=== PATIENT | male | born 1950 | race Caucasian/White ===

== ENCOUNTER 2019-07-27 05:47 | Outpatient (CLI) | payer MEDICARE, OTHER ==
[~2019-07-27] VITALS: Ht 177.8 cm; Wt 105.8 kg
[2019-07-27] MEDS ORDERED: PANT40TA3 PO (12:12)
== END 2019-07-27 12:13 | disposition home or self-care (01) ==
LOC: PREOP 05:47
PROVIDERS: ATTEND Surgery
DX: Z01.818 Encounter for other preprocedural examination (principal)

== ENCOUNTER 2019-08-03 08:40 | Day surgery (SDC) | payer MEDICARE, OTHER ==
[~2019-08-03] VITALS: Ht 177.8 cm; Wt 105.8 kg
[~2019-08-03 08:40] MED LIST: PANT40TA3 PO
[2019-08-03] MEDS ORDERED: LACTATED RINGERS 1,000 ML IV STA (08:42)
[2019-08-03] MEDS ORDERED: LIDOCAINE JELLY 2% 6 ML SYRINGE MM PRN (08:45)
[2019-08-03] MEDS ORDERED: HURRICAINE EXT TUBE (BENZOCAINE) XX PRN (08:45)
[2019-08-03] MEDS ORDERED: LACTATED RINGERS 1,000 ML IV ONE (08:46)
[2019-08-03 09:00] VITALS: BP 164/91
--- NOTE | 2019-08-03 09:45 | Progress Note-Pre Operative ---
Pre-Operative Progress Note H&P Reviewed The H&P was reviewed, patient examined and no changes noted. Time Seen by Provider: 09:44 Date H&P Reviewed: Aug 03, 2019 Time H&P Reviewed: 09:43 Pre-Operative Diagnosis: chronic gastritis, screening colon BLAKE GRANADOS DO Aug 03, 2019 09:45
[2019-08-03] MEDS ORDERED: PROPOFOL INJECTION 50 ML IV ONE ×2 (10:14→10:32)
[2019-08-03] MEDS ORDERED: MIDAZOLAM 2 MG/2 ML (VERSED) VIAL ONE (10:14)
[2019-08-03 10:50] VITALS: BP 143/85
[2019-08-03 10:55] VITALS: BP 156/91
[2019-08-03 11:00] VITALS: BP 156/97
[2019-08-03 11:30] VITALS: BP 142/92
--- NOTE | 2019-08-03 11:54 | Endoscopy Discharge Instruct ---
Endo Procedure/Findings Findings 1.: Gastritis, Other Findings (Duodenitis, Esophagitis) 2.: Polyp 3.: Diverticulosis 4.: Internal Hemorrhoids Discharge Instructions - Activity: You might feel a little sleepy until tomorrow. This is due to the medicine you received to relax you. Until tomorrow, you should: NOT drive a car, operate machinery or power tools. NOT drink any alcoholic beverages. NOT make any important decisions or sign importortant papers. Do not return to work until tomorrow, unless otherwise instructed. Resume previous activities tomorrow. Diet: Start by taking liquids. If you tolerate liquids, advance to solid food. make an appointment for one week 1.: Colonoscopy in 1 year Notify Physician - If you experience excessive bleeding, unusual abdominal pain, fever, or chest pain, contact your doctor immediately. BLAKE GRANADOS DO Aug 03, 2019 11:54
[2019-08-03 12:10] VITALS: BP 142/92
--- NOTE | 2019-08-03 12:51 | Anesthesia-General Post-Op ---
MAC Patient Condition Mental Status/LOC: Same as Preop Cardiovascular: Satisfactory Nausea/Vomiting: Absent Respiratory: Satisfactory Pain: Controlled Complications: Absent Post Op Complications Complications None Follow Up Care/Instructions Patient Instructions None needed. Anesthesiology Discharge Order Discharge Order Patient is doing well, no complaints, stable vital signs, no apparent adverse anesthesia problems. No complications reported per nursing. DANNY CUEVAS CRNA Aug 03, 2019 12:51
--- NOTE | 2019-08-05 00:16 | OPERATIVE REPORT ---
DATE OF SERVICE: 08/03/2019 PREOPERATIVE DIAGNOSES: 1. Chronic gastritis. 2. Screening colonoscopy. POSTOPERATIVE DIAGNOSES: 1. Duodenitis. 2. Gastritis. 3. Esophagitis. 4. Colon polyps. 5. Diverticula. 6. Internal hemorrhoids. PROCEDURE: 1. EGD with biopsy. 2. Colonoscopy with snare polypectomy. SURGEON: Fernando Diaz D.O. COMMUNITY AIDE: None. ANESTHESIA: IV sedation by the REPAIR SERVICE DISPATCHER. SPECIMEN: Biopsy from the antrum, body of stomach and GE junction as well as two polyps from the ascending colon and one polyp from the sigmoid colon. BLOOD LOSS: Scant. FLUIDS: Per anesthesia. POSTOPERATIVE CONDITION: Stable. INDICATION FOR PROCEDURE: The patient is a 69-year-old male who has some chronic reflux and GERD symptoms. He also need for screening colonoscopy. FINDINGS: The patient had inflammation in the duodenum as well as in the stomach and at the GE junction. In the colon, he had a polyp seen, two in the ascending colon and one in the sigmoid colon. He also had diverticula throughout the colon and internal hemorrhoids. PROCEDURE NOTE: After informed consent was obtained, the patient was brought to the endoscopy suite and placed in the bed in left lateral decubitus position. He was administered IV sedation by the REPAIR SERVICE DISPATCHER who then monitored his vitals the entire time, heart rate, blood pressure and pulse ox and the scope was inserted down the mouth through the esophagus into the stomach, noted some redness in the stomach, pushed through here into the duodenum, duodenum actually looked very red, like a duodenitis. Pictures were taken and a biopsy was done, pulled back into the antrum. Again saw some inflammation, did a biopsy here, then pulled back into the body of stomach, again inflamed looking tissue, did a biopsy here. Retroflexed the scope and then pulled the scope into the GE junction, did a biopsy here then pulled the scope up the esophagus and out the mouth. Switched camera, switched gloves, went down below, started the colonoscopy, pushed the scope in, on the way in and the ascending colon, saw some polyps, did a snare polypectomy of these. There is two in the ascending colon, unable to get all the way to the cecum, took a picture of the appendiceal orifice, noted the ileocecal valve and then slowly withdrew the scope, insufflating to look circumferentially at wall, looking at cecum up the ascending colon to the hepatic flexure, then down the transverse colon to splenic flexure, into the descending colon and sigmoid. Throughout here saw diverticula, took a picture of this and then pulled the scope down into the sigmoid and the sigmoid again saw flat polyp, did another snare polypectomy and then down into the rectum, retroflexed the rectal vault, saw some grade I may be grade II internal hemorrhoids, took a picture of this and then removed the scope. The patient tolerated the procedure and was recovered in endoscopy suite. Job ID: [id number] DocumentID: [id number] Dictated Date: 08/04/2019 17:15:15 Plate Cleaner Date: 08/05/2019 00:15:36 Dictated By: FERNANDO DIAZ DO
== END 2019-08-03 12:10 | disposition home or self-care (01) ==
LOC: ENDO 08:40
PROVIDERS: ATTEND Surgery
DX: Z12.11 Encounter for screening for malignant neoplasm of colon (principal); D12.2 Benign neoplasm of ascending colon; K63.5 Polyp of colon; K21.0 Gastro-esophageal reflux disease with esophagitis; K29.50 Unspecified chronic gastritis without bleeding; K29.80 Duodenitis without bleeding; K57.30 Diverticulosis of large intestine without perforation or abscess without bleeding; K31.89 Other diseases of stomach and duodenum; K64.8 Other hemorrhoids; I10 Essential (primary) hypertension; E66.9 Obesity, unspecified; Z68.33 Body mass index [BMI] 33.0-33.9, adult; Z79.899 Other long term (current) drug therapy; Z82.0 Family history of epilepsy and other diseases of the nervous system
CPT/HCPCS: 88305

== ENCOUNTER 2021-04-30 18:00 | Inpatient (IN) | payer MEDICARE, OTHER ==
[~2021-04-30] VITALS: Ht 177.8 cm; Wt 104.9 kg
[~2021-04-30 18:00] MED LIST changes: -PANT40TA3 PO; +PANT40TA52 PO
--- NOTE | 2021-04-30 18:03 | ED Chest Pain ---
General Stated Complaint: CHEST PAIN History of Present Illness Date Seen by Provider: Apr 30, 2021 Time Seen by Provider: 18:03 Initial Comments 71-year-old male presents with chest pain, diaphoresis and just not feeling well. Started approximately 1 hour ago he was out haying riding in an airconditioned tractor. He has some mild shortness of breath. The chest pain is substernal. Allergies and Home Medications Allergies Coded Allergies: No Known Drug Allergies (Unverified , 07/27/19) Home Medications Lisinopril 10 Mg Tablet, 10 MG PO DAILY, (Reported) Last Action: New Order Pantoprazole Sodium 40 Mg Tablet.dr, 40 MG PO DAILY, (Reported) Last Action: Last Taken Edited Patient Home Medication List Home Medication List Reviewed: Yes Review of Systems Review of Systems Constitutional: No chills, No fever Respiratory: Denies Cough; Shortness of Air Cardiovascular: Chest Pain Musculoskeletal: no symptoms reported Skin: other (Diaphoresis) Psychiatric/Neurological: No Symptoms Reported Endocrine: No Symptoms Reported Hematologic/Lymphatic: No Symptoms Reported Past Nmcpjhn-Wixqub-Kbehch Hx Seasonal Allergies Seasonal Allergies: Yes Past Medical History Surgeries: Yes (LESION REMOVED FROM ARM) Respiratory: No Cardiac: No Neurological: No Genitourinary: No Gastrointestinal: Yes Gastroesophageal Reflux Musculoskeletal: No Endocrine: No HEENT: No Cancer: Yes Melanoma What Type of Treatment Did You: Surgical Intervention Psychosocial: No Integumentary: No Blood Disorders: No Physical Exam Vital Signs Vital Signs - First Documented 04/30/21 04/30/21 18:00 18:05 Temp 35.4 Pulse 70 Resp 22 B/P (MAP) 114/75 (88) Pulse Ox 98 O2 Delivery Room Air O2 Flow Rate 2.00 FiO2 98 Capillary Refill : Height, Weight, BMI Height: '" Weight: lbs. oz. kg; 33.46 BMI Method: General Appearance: Other (Diaphoretic, moderate distress) HEENT: PERRL/EOMI Neck: Non Tender, Supple Respiratory: Lungs Clear Cardiovascular: Regular Rate, Rhythm, No Edema Neurologic/Psychiatric: Alert, Oriented x3, Normal Mood/Affect Skin: Diaphoresis Progress/Results/Core Measures Results/Orders Lab Results Laboratory Tests Test 04/30/21 17:04 Range/Units White Blood Count 11.3 H 4.3-11.0 10^3/uL Red Blood Count 5.25 4.35-5.85 10^6/uL Hemoglobin 16.2 13.3-17.7 G/DL Hematocrit 50 40-54 % Mean Corpuscular Volume 95 80-99 FL Mean Corpuscular Hemoglobin 31 25-34 PG Mean Corpuscular Hemoglobin Concent 32 32-36 G/DL Red Cell Distribution Width 14.2 10.0-14.5 % Platelet Count 288 130-400 10^3/uL Mean Platelet Volume 9.9 7.4-10.4 FL Neutrophils (%) (Auto) 71 42-75 % Lymphocytes (%) (Auto) 19 12-44 % Monocytes (%) (Auto) 8 0-12 % Eosinophils (%) (Auto) 1 0-10 % Basophils (%) (Auto) 0 0-10 % Neutrophils # (Auto) 8.0 H 1.8-7.8 X 10^3 Lymphocytes # (Auto) 2.1 1.0-4.0 X 10^3 Monocytes # (Auto) 0.9 0.0-1.0 X 10^3 Eosinophils # (Auto) 0.2 0.0-0.3 10^3/uL Basophils # (Auto) 0.0 0.0-0.1 10^3/uL Prothrombin Time 12.5 12.2-14.7 SEC INR Comment 0.9 0.8-1.4 Activated Partial Thromboplast Time 26 24-35 SEC Sodium Level 139 135-145 MMOL/L Potassium Level 5.0 3.6-5.0 MMOL/L Chloride Level 103 98-107 MMOL/L Carbon Dioxide Level 28 21-32 MMOL/L Anion Gap 8 5-14 MMOL/L Blood Urea Nitrogen 19 H 7-18 MG/DL Creatinine 1.77 H 0.60-1.30 MG/DL Estimat Glomerular Filtration Rate 38 BUN/Creatinine Ratio 11 Glucose Level 144 H 70-105 MG/DL Calcium Level 9.5 8.5-10.1 MG/DL Corrected Calcium 9.1 8.5-10.1 MG/DL Magnesium Level 2.3 1.6-2.4 MG/DL Total Bilirubin 0.2 0.1-1.0 MG/DL Aspartate Amino Transf (AST/SGOT) 15 5-34 U/L Alanine Aminotransferase (ALT/SGPT) 21 0-55 U/L Alkaline Phosphatase 56 40-136 U/L Myoglobin 47.9 10.0-92.0 NG/ML Troponin I < 0.30 <0.30 NG/ML Total Protein 7.2 6.4-8.2 GM/DL Albumin 4.5 3.2-4.5 GM/DL My Orders Orders - BYRD,ROBERT L DO Cbc With Automated Diff (04/30/21 18:03) Magnesium (04/30/21 18:03) Chest 1 View Ap/Pa Only (04/30/21 18:03) Ekg Tracing (04/30/21 18:03) Comprehensive Metabolic Panel (04/30/21 18:03) Myoglobin Serum (04/30/21 18:03) Protime With Inr (04/30/21 18:03) Partial Thromboplastin Time (04/30/21 18:03) O2 (04/30/21 18:03) Monitor-Rhythm Ecg Trace Only (04/30/21 18:03) Lipid Panel (05/01/21 06:00) Aspirin Chewable Tablet (Baby Aspirin Ch (04/30/21 18:15) Ed Iv/Invasive Line Start (04/30/21 18:03) Troponin I Fs (04/30/21 18:03) Clopidogrel Tablet (Plavix Tablet) (04/30/21 18:15) Heparin (Bolus Per Protocol) (Heparin (B (04/30/21 18:15) Clopidogrel Tablet (Plavix Tablet) (04/30/21 18:12) Ondansetron Injection (Zofran Injectio (04/30/21 18:30) Ondansetron Injection (Zofran Injectio (04/30/21 18:18) Medications Given in ED Current Medications Medications Dose Ordered Sig/Brooks Route Start Time Stop Time Status Last Admin Dose Admin Aspirin 324 mg ONCE ONCE PO 04/30/21 18:15 04/30/21 18:16 DC 04/30/21 18:15 324 MG Clopidogrel Bisulfate 600 mg ONCE ONCE PO 04/30/21 18:15 04/30/21 18:16 DC 04/30/21 18:15 600 MG Ondansetron HCl 4 mg ONCE ONCE IVP 04/30/21 18:30 04/30/21 18:31 DC 04/30/21 18:19 4 MG Vital Signs/I&O 04/30/21 04/30/21 04/30/21 18:00 18:05 18:20 Temp 35.4 35.4 Pulse 70 68 Resp 22 22 B/P (MAP) 114/75 (88) 111/71 (88) Pulse Ox 98 98 O2 Delivery Room Air Room Air Nasal Cannula O2 Flow Rate 2.00 2.00 FiO2 98 Progress Progress Note : Progress Note Patient with an acute ST elevation ND. Patient transferred emergently via EMS to [facility] straight to the Clinical Geneticist. Discussed with Dr. Christian. Initial ECG Impression Date: Apr 30, 2021 Initial ECG Impression Time: 18:02 Initial ECG Rate: 69 Comment Acute Stemi, St elevation V1, V2 with reciprical st depression II, III, AVF Departure Communication (Admissions) Time/Spoke to Admitting Phy: 18:11 Aspirin, heparin, Plavix, transferred to [facility] directly to the Clinical Geneticist Impression Primary Impression: STEMI (ST elevation myocardial infarction) Qualified Codes: I21.3 - ST elevation (STEMI) myocardial infarction of uns pecified site Disposition: HOME, SELF-CARE Condition: Critical Admissions Decision to Admit Reason: Admit from ER (General) Decision to Admit/Date: Apr 30, 2021 Time/Decision to Admit Time: 18:11 Transfer Method of Transfer: EMS Departure-Patient Inst. Referrals: JAYA DIEHL MD (PCP/Family) Primary Care Physician ROBERT BYRD DO Apr 30, 2021 18:03
[2021-04-30 18:09] LABS: BASOPHILS % (AUTO) 0 % (0-10); EOSINOPHILS % (AUTO) 1 % (0-10); HEMATOCRIT 50 % (40-54); HEMOGLOBIN 16.2 G/DL (13.3-17.7); LYMPHOCYTES % (AUTO) 19 % (12-44); MEAN CORPUSCULAR HEMOGLOBIN 31 PG (25-34); MEAN CORPUSCULAR HGB CONC 32 G/DL (32-36); MEAN CORPUSCULAR VOLUME 95 FL (80-99); MEAN PLATELET VOLUME 9.9 FL (7.4-10.4); MONOCYTES % (AUTO) 8 % (0-12); NEUTROPHILS % (AUTO) 71 % (42-75); PLATELET COUNT 288 10^3/uL (130-400); WHITE BLOOD COUNT 11.3 10^3/uL (4.3-11.0)
[2021-04-30 18:10] LABS: EOSINOPHILS # (AUTO) 0.2 10^3/uL (0.0-0.3); LYMPHOCYTES # (AUTO) 2.1 X 10^3 (1.0-4.0); MONOCYTES # (AUTO) 0.9 X 10^3 (0.0-1.0)
[2021-04-30] MEDS ORDERED: CLOPIDOGREL 300 MG (PLAVIX) TABLET PO ONE ×2 (18:12→18:15)
[2021-04-30] MEDS ORDERED: HEParin 1000 UNIT/ML (10ML VIAL) FOR BOLUS IV SCH (18:15)
[2021-04-30] MEDS ORDERED: ASPIRIN 81 MG CHEW (CHILDREN'S ASA) PO ONE (18:15)
[2021-04-30] MEDS ORDERED: ONDANSETRON 4 MG/2 ML (SDV) Z0FRAN ONE (18:18)
[2021-04-30 18:24] LABS: CREATININE SERUM 1.77 MG/DL (0.60-1.30)
[2021-04-30 18:25] LABS: ALBUMIN 4.5 GM/DL (3.2-4.5); BILIRUBIN,TOTAL 0.2 MG/DL (0.1-1.0); CALCIUM 9.5 MG/DL (8.5-10.1); MAGNESIUM 2.3 MG/DL (1.6-2.4); TOTAL PROTEIN 7.2 GM/DL (6.4-8.2)
--- NOTE | 2021-04-30 18:27 | Diagnostic Imaging Report ---
EXAMINATION: Chest 1 view. HISTORY: Chest pain. COMPARISON: None available. FINDINGS: The lung volumes are normal. No focal consolidation is seen. No large pleural effusion or pneumothorax is seen. The cardiomediastinal silhouette is normal in size and contour. No acute osseous abnormality is seen. IMPRESSION: No acute pleuroparenchymal process. Dictated by: Dictated on workstation # [id number]
[2021-04-30] MEDS ORDERED: ONDANSETRON 4 MG/2 ML (SDV) Z0FRAN IVP ONE (18:30)
[2021-04-30] MEDS ORDERED: LISI10TA25 PO (18:38)
[2021-04-30] MEDS ORDERED: fentaNYL INJ 100 MCG/2 ML AMP ONE (18:50)
[2021-04-30] MEDS ORDERED: MIDAZOLAM 5 MG/5 ML (VERSED) VIAL ONE (18:50)
[2021-04-30] MEDS ORDERED: LIDOCAINE 1% INJ 20 ML 20 ML VIAL ONE (18:51)
[2021-04-30] MEDS ORDERED: NS IV 1000 ML 1,000 ML ONE (18:51)
[2021-04-30] MEDS ORDERED: HEParin (CATH LAB) 2,000 ML IV ONE (18:51)
[2021-04-30] MEDS ORDERED: HEParin 1000 UNIT/ML (10ML VIAL) FOR BOLUS ONE (18:51)
[2021-04-30] MEDS ORDERED: NITRO DRIP 25000 MCG/D5W 250 ML IV ONE (18:52)
[2021-04-30 19:15] LABS: INR 0.9 (0.8-1.4); PROTHROMBIN TIME PATIENT 12.5 SEC (12.2-14.7)
[2021-04-30] MEDS ORDERED: EPTIFIBATIDE DRIP 100 ML IV ONE ×2 (19:18→23:09)
[2021-04-30] MEDS ORDERED: EPTIFIBATIDE BOLUS 20 ML IV ONE (19:18)
[2021-04-30] MEDS ORDERED: niCARdipine IV FOR DRIP 50 MG KIT ONE (19:20)
[2021-04-30] MEDS ORDERED: NS (IVPB) 250 ML ONE (19:21)
--- NOTE | 2021-04-30 19:40 | Cardiology History & Physical ---
HPI-Cardiology Cardiology Consultation Date of Consultation 04/30/21 Date of Admission Time Seen by Provider: 07:00 Indication: Chest pain HPI 71 years old gentleman with history of hypertension, diabetes mellitus, started to have chest pain and came to the emergency room where he was noted to have ST elevation myocardial infarction in the anterior wall. I was contacted and the Track Supervisor team were activated, on my evaluation patient was still having active chest pain, required multiple morphine injection. No shortness of breath. No syncope or near syncopal episodes. No previous cardiac history PMH-Cardiology Immunizations Up To Date Date of Pneumonia Vaccine: Apr 27, 2019 Seasonal Allergies Seasonal Allergies: Yes Surgeries Yes (LESION REMOVED FROM ARM) Respiratory No Cardiovascular No Neurological No Genitourinary No Gastrointestinal Yes Gastroesophageal Reflux Musculoskeletal No Endocrine No HEENT No Cancer Yes Melanoma Type of Treatment: Surgical Intervention Psychosocial No Integumentary No Blood Transfusions No Social History Patient Social History Marrital Status: Employed/Student: retired Have you traveled recently?: No Alcohol Use?: Unable to obtain Family Hx Other Noncontributory to his current condition ROS-Cardiology Review of Systems General: No Chills, No Night Sweats, No Fatigue, No Malaise, No Appetite; Other (Diaphoresis) HEENT: No Head Aches, No Visual Changes, No Eye Pain, No Ear Pain, No Dysp hasia, No Sinus Congestion, No Post Nasal Drip, No Sore Throat Pulmonary: No Dyspnea, No Cough, No Pleuritic Chest Pain Cardiovascular: Chest Pain; No: Palpitations, Orthopnea, Paroxysmal Noc. Dyspnea, Edema, Lt Headedness Gastrointestinal: No: Nausea, Vomiting, Abdominal Pain, Diarrhea, Constipation, Melena, Hematochezia Genitourinary: No Dysuria, No Frequency, No Incontinence, No Hematuria, No Retention Musculoskeletal: No: neck pain, shoulder pain, arm pain, back pain, hand pain, leg pain, foot pain Neurological: No: Weakness, Numbness, Incoordination, Change in speech, Confusion, Seizures Home Medications & Allergies Allergies: Coded Allergies: No Known Drug Allergies (Unverified , 07/27/19) Home Medication List Reviewed: Yes Exam-Cardiology Vital Signs Vital Signs Date Time Temp Pulse Resp B/P (MAP) Pulse Ox O2 Delivery O2 Flow Rate FiO2 04/30/21 18:20 35.4 68 22 111/71 (88) 98 Nasal Cannula 2.00 04/30/21 18:05 98 Exam General Appearance: Alert, Oriented X3, Cooperative, No Acute Distress HEENT: Atraumatic, PERRLA Respiratory: Clear to Auscultation, Normal Air Movement Cardiovascular: Regular Rate, Normal S1, Normal S2, No Murmurs Abdominal: Normal Bowel Sounds, Soft, No Tenderness, No Hepatosplenomegaly, No Masses Extremities: No Clubbing, No Cyanosis, No Edema, Normal Pulses, No Tenderness/Swelling Skin: No Rashes, No Breakdown, No Significant Lesion Neuro: Normal Gait, Normal Speech, Strength at 5/5 X4 Ext, Normal Tone, Sensation Intact Psych/Mental Status: Mental Status NL, Mood NL Results Labs Labs Laboratory Tests 04/30/21 17:04: White Blood Count 11.3H, Red Blood Count 5.25, Hemoglobin 16.2, Hematocrit 50, Mean Corpuscular Volume 95, Mean Corpuscular Hemoglobin 31, Mean Corpuscular Hemoglobin Concent 32, Red Cell Distribution Width 14.2, Platelet Count 288, Mean Platelet Volume 9.9, Neutrophils (%) (Auto) 71, Lymphocytes (%) (Auto) 19, Monocytes (%) (Auto) 8, Eosinophils (%) (Auto) 1, Basophils (%) (Auto) 0, Neutrophils # (Auto) 8.0H, Lymphocytes # (Auto) 2.1, Monocytes # (Auto) 0.9, Eosinophils # (Auto) 0.2, Basophils # (Auto) 0.0, Prothrombin Time 12.5, INR Comment 0.9, Activated Partial Thromboplast Time 26, Sodium Level 139, Potassium Level 5.0, Chloride Level 103, Carbon Dioxide Level 28, Anion Gap 8, Blood Urea Nitrogen 19H, Creatinine 1.77H, Estimat Glomerular Filtration Rate 38, BUN/Creatinine Ratio 11, Glucose Level 144H, Calcium Level 9.5, Corrected Calcium 9.1, Magnesium Level 2.3, Total Bilirubin 0.2, Aspartate Amino Transf (AST/SGOT) 15, Alanine Aminotransferase (ALT/SGPT) 21, Alkaline Phosphatase 56, Myoglobin 47.9, Troponin I < 0.30, Total Protein 7.2, Albumin 4.5 A/P-Cardiology Admission Diagnosis Acute ST elevation myocardial infarction Coronary artery disease Hypertension Hyperlipidemia Admission Status: Inpatient Order (span 2 midnights) Reason for Inpatient Admission: STEMI Assessment/Plan Acute ST elevation myocardial infarction in the anterior wall, patient was brought from the emergency room directly to the Track Supervisor for emergency cardiac catheterization, stenting to the LAD was done with door to balloon time 16 minutes with excellent results Coronary artery disease, cardiac catheterization carried out on April 30, 2021 showing total occlusion of the proximal LAD, status post balloon angioplasty and stenting using Anneliese 3 x 23 mm drug-eluting stent expanded to 3.12 mm with excellent results, patient has severe stenosis in the proximal right coronary artery that is small nondominant artery which will be treated at a later point to limit the exposure to contrast Congestive heart failure, acute left ventricular systolic dysfunction with anterior apical anterior wall hypokinesia, ejection fraction 40%. Will be starting on beta-blockers and ARB Hypertension, starting on beta-blockers and ARB, monitor blood pressure Hyperlipidemia we will be starting empirically on Lipitor 80 mg daily Diabetes mellitus, starting on Accu-Chek. Managed by primary care team Acute renal insufficiency, starting on IV fluid and monitoring renal function Clinical Quality Measures AMI/AHF: ASA po Prior to arrival: FIONA Singh MD Apr 30, 2021 7:40 pm
--- NOTE | 2021-04-30 19:41 | Conscious Sedation/ASA ---
Conscious Sedation Pre-Proced Time 07:00 ASA Score 3 For ASA 3 and 4: Consider anesthesia and medical clearance. Also, for patients with a history of failed moderate sedation consider anesthesia. Airway Lungs Heart ASA score ASA 1: a normal healthy patient ASA 2: a patient with a mild systemic disease (mid diabetes, controlled hypertension, obesity x ASA 3: a patient with a severe systemic disease that limits activity (angina, COPD, prior Myocardial infarction) ASA 4: a patient with an incapacitating disease that is a constant threat to life (CHF, renal failure) ASA 5: a moribund patient not expected to survive 24 hrs. (ruptured aneurysm) ASA 6: a declared brain- patient whose organs are being harvested. For emergent operations, add the letter E after the classification Mallampati Classification Grade 3 Sedation Plan Analgesia, Amnesia, Plan communicated to team members, Discussed options with patient/fam, Discussed risks with patient/fam The patient is an appropriate candidate to undergo the planned procedure, sedation, and anesthesia. The patient immediately re-assessed prior to indication. FIONA SEALS MD Apr 30, 2021 7:40 pm
[2021-04-30] MEDS ORDERED: PATIENT MAY USE OWN MEDS, ALL PO SCH (19:45)
--- NOTE | 2021-04-30 19:50 | Cardiac Cath Report ---
Cardiac Cath Report Physician (s)/Teaching Music Lessons (s) Physician FIONA SEALS MD Pre-Procedure Diagnosis Pre-Procedure Diagnosis: Acute ST elevation myocardial infarction Post-Procedure Note Procedure Start Date: Apr 30, 2021 Name of Procedure: Left heart catheterization Emergency stenting to the LAD Findings/Procedure Note PROCEDURE NOTE: 71 years old gentleman admitted with acute ST elevation myocardial infarction in the anterior wall, Rat Farmer was activated and emergency cardiac catheterization was planned. After explaining the procedure to the patient, all pros and cons were explained, all questions were answered. The patient signed the consent and then he was placed on the cardiac catheterization laboratory. Groin was prepped SL fashion local anesthesia was used. Sheath placed in the right femoral artery. Iron right was advanced to the right coronary system then I used left guide knowing that the patient has acute anterior wall ST elevation myocardial infarction to do the angiogram to the left system then intervention was done. Pigtail was used to access the left ventricular cavity. Left ventriculogram was done Patient received 5000 unit of heparin in the emergency room, ACT was 140, additional 3000 units of heparin were given and double bolus Integrilin and Integrilin drip was initiated. Iron left guide was advanced to the left coronary system, patient has total occlusion of the proximal LAD, BMW wire was advanced through the LAD without difficulties, primary ballooning with 2 x 20 balloon was done reestablishment of flow was done at door to established flow of 16 minutes, second balloon using trek 3 x 20 mm was done then stenting using Anneliese 3 x 23 mm expanded to 3.12 mm with excellent results, patient was given 200 mcg of intracoronary Cardene. Initially there was poor flow in the LAD, using the 2.0 balloon I advanced the balloon down to the distal LAD and retracted without inflation which reestablish flow. At the end of the procedure the sheath was removed. Closure device was deployed FINDINGS: Hemodynamics LV 109/24, end-diastolic pressure of 24 Aorta 107/63 mean of 83 ANATOMY: Left Main is free of obstructive disease Left Anterior Descending is totally occluded proximally, successful emergency angioplasty and stenting with deployment of Anneliese 3.0 x 23 mm expanded to 3.12 mm with excellent results, door to balloon time was 16 minutes Left Circumflex is large dominant artery with mild disease nonobstructive disease Right Coronary Artery is small nondominant artery with severe stenosis proximally LV Gram was done in the left anterior black position left ventricle is prominent, hypokinesia in the anterior wall akinesia of the apex, ejection fraction 40% CONCLUSION: 1. Acute ST elevation myocardial infarction in the anterior wall with emergency cardiac catheterization and stenting to the LAD with door to establish flow 16 minutes 2. Total occlusion of the LAD successful balloon angioplasty and stenting using Anneliese 3 x 23 mm expanded to 3.12 mm with excellent results 3. Severe stenosis in the proximal right coronary artery that is small nondominant artery which would be staged for later point 4. Large dominant circumflex artery with mild disease nonobstructive disease 5. Congestive heart failure, hypokinesia of the anterior wall, akinesia of the apex secondary to stunned myocardium, ejection fraction 40% DISCUSSION AND RECOMMENDATION: Patient has underlying renal insufficiency, has elevated left ventricular end-diastolic pressure, he was loaded with aspirin and Plavix, started on Toprol, losartan and Lipitor in addition to Protonix. He will be maintained on Integrilin drip overnight. Continue to monitor closely. Anesthesia Type: Conscious Sedation Estimated blood loss (mL): 25 ml Contrast Amount: 105 ml Total Radiation Dose: 1075 mGy Post-Procedure Diagnosis Post-operative diagnosis: Acute ST elevation myocardial infarction Coronary artery disease Congestive heart failure, acute left ventricular systolic dysfunction Hypertension FIONA SEALS MD Apr 30, 2021 7:50 pm
[2021-04-30] MEDS: NS IV 1000 ML 1,000 ML IV SCH (21:13)
[2021-04-30] MEDS: EPTIFIBATIDE DRIP 100 ML IV SCH ×2 (21:14→23:13)
[2021-04-30] MEDS: FUROSEMIDE 40 MG/4 ML INJ (LASIX) IVP SCH (21:14)
[2021-05-01] MEDS ORDERED: meTOprolol 5 MG/5 ML (LOPRESSOR) VIAL IV ONE (01:00)
[2021-05-01] MEDS ORDERED: meTOprolol 5 MG/5 ML (LOPRESSOR) VIAL ONE (01:06)
[2021-05-01] MEDS: NS IV 1000 ML 1,000 ML IV SCH ×2 (05:19→15:17)
[2021-05-01] MEDS: FUROSEMIDE 40 MG/4 ML INJ (LASIX) IVP SCH ×2 (05:19→16:28)
[2021-05-01] MEDS ORDERED: EPTIFIBATIDE DRIP 100 ML IV ONE (05:32)
[2021-05-01] MEDS: EPTIFIBATIDE DRIP 100 ML IV SCH (05:45)
[2021-05-01 06:52] LABS: HEMATOCRIT 47 % (40-54); HEMOGLOBIN 14.9 g/dL (13.3-17.7); MEAN CORPUSCULAR HEMOGLOBIN 31 pg (25-34); MEAN CORPUSCULAR HGB CONC 32 g/dL (32-36); MEAN CORPUSCULAR VOLUME 96 fL (80-99); MEAN PLATELET VOLUME 10.6 fL (9.0-12.2); PLATELET COUNT 279 10^3/uL (130-400); WHITE BLOOD COUNT 11.3 10^3/uL (4.3-11.0)
[2021-05-01 07:06] LABS: CALCIUM 8.9 MG/DL (8.5-10.1); CREATININE SERUM 1.29 MG/DL (0.60-1.30); MAGNESIUM 2.3 MG/DL (1.6-2.4); PHOSPHORUS 3.8 MG/DL (2.3-4.7); POTASSIUM 4.7 MMOL/L (3.6-5.0)
[2021-05-01] MEDS: MAGNESIUM 1 GM/100 ML IVPB 100 ML IV SCH (07:13)
[2021-05-01] MEDS: POTASSIUM CL 10MEQ/50ML IVPB 50 ML IV SCH (07:13)
[2021-05-01] MEDS: KCL 20 MEQ TAB (K-DUR) PO SCH (07:13)
[2021-05-01] MEDS: LOSARTAN 25 MG (COZAAR) TAB PO SCH (08:06)
[2021-05-01] MEDS: PANTOPRAZOLE 40 MG (PROTONIX) TAB PO SCH (08:06)
[2021-05-01] MEDS: CLOPIDOGREL 75 MG (PLAVIX) TABLET PO SCH (08:06)
[2021-05-01] MEDS: ASPIRIN E.C. 81 MG (ECOTRIN) TAB PO SCH (08:06)
--- NOTE | 2021-05-01 11:14 | Consultation ---
HPI History of Present Illness: 71 yo M patient of Dr Encinas that presented to ER with STEMI, Asked to see this patient by Dr Christian for medical consult. Patient states that he is feeling much better this AM. Started having chest pain yesterday while he was out cutting hay. States that he had been having some increasing shortness of breath for the last few weeks. Denies any previous CAD or IL. States that he recently was started on blood pressure medication but prior to that was not taking any other medications. Source: patient, spouse Exam Limitations: no limitations Date seen by provider: May 01, 2021 Time Seen by Provider: 09:15 Attending Physician Henry Christian MD PCP Jaya Hernandez MD Consult Date of Admission Apr 30, 2021 at 19:44 Home Medications Home Medications Reviewed patient Home Medication Reconciliation performed by pharmacy medication reconciliations cardiac cath technician and/or nursing. Patients Allergies have been reviewed. Allergies Coded Allergies: No Known Drug Allergies (Unverified , 07/27/19) [id number] Hx Patient Social History Marrital Status: Living Status: Lives at home with spouse Employed/Student: retired Smoking Status: Never a Smoker 2nd Hand Smoke Exposure: No Recent Hopitalizations: No Alcohol Use?: No Have you traveled recently?: No Immunizations Up To Date Date of Pneumonia Vaccine: Apr 27, 2019 Past Medical History HTN Review of Systems (CHC) Constitutional: no symptoms reported; No chills, No fever EENTM: no symptoms reported; No mouth pain, No nose congestion, No nose pain, No throat pain Respiratory: No cough; dyspnea on exertion; No short of breath Cardiovascular: no symptoms reported; No chest pain, No edema, No palpitations Gastrointestinal: no symptoms reported; No abdominal pain, No constipation, No diarrhea, No loss of appetite, No nausea, No vomiting Genitourinary: no symptoms reported; No dysuria, No frequency, No hematuria Musculoskeletal: back pain Skin: no symptoms reported; No lesions, No rash Psychiatric/Neurological: No Symptoms Reported Reviewed Test Results Reviewed Test Results Lab Laboratory Tests Test 04/30/21 17:04 05/01/21 05:15 Range/Units White Blood Count 11.3 H 11.3 H 4.3-11.0 10^3/uL Red Blood Count 5.25 4.88 4.30-5.52 10^6/uL Hemoglobin 16.2 14.9 13.3-17.7 g/dL Hematocrit 50 47 40-54 % Mean Corpuscular Volume 95 96 80-99 fL Mean Corpuscular Hemoglobin 31 31 25-34 pg Mean Corpuscular Hemoglobin Concent 32 32 32-36 g/dL Red Cell Distribution Width 14.2 14.1 10.0-14.5 % Platelet Count 288 279 130-400 10^3/uL Mean Platelet Volume 9.9 10.6 9.0-12.2 fL Neutrophils (%) (Auto) 71 42-75 % Lymphocytes (%) (Auto) 19 12-44 % Monocytes (%) (Auto) 8 0-12 % Eosinophils (%) (Auto) 1 0-10 % Basophils (%) (Auto) 0 0-10 % Neutrophils # (Auto) 8.0 H 1.8-7.8 X 10^3 Lymphocytes # (Auto) 2.1 1.0-4.0 X 10^3 Monocytes # (Auto) 0.9 0.0-1.0 X 10^3 Eosinophils # (Auto) 0.2 0.0-0.3 10^3/uL Basophils # (Auto) 0.0 0.0-0.1 10^3/uL Prothrombin Time 12.5 12.2-14.7 SEC INR Comment 0.9 0.8-1.4 Activated Partial Thromboplast Time 26 24-35 SEC Sodium Level 139 139 135-145 MMOL/L Potassium Level 5.0 4.7 3.6-5.0 MMOL/L Chloride Level 103 106 98-107 MMOL/L Carbon Dioxide Level 28 23 21-32 MMOL/L Anion Gap 8 10 5-14 MMOL/L Blood Urea Nitrogen 19 H 21 H 7-18 MG/DL Creatinine 1.77 H 1.29 0.60-1.30 MG/DL Estimat Glomerular Filtration Rate 38 55 BUN/Creatinine Ratio 11 16 Glucose Level 144 H 126 H 70-105 MG/DL Calcium Level 9.5 8.9 8.5-10.1 MG/DL Corrected Calcium 9.1 8.5-10.1 MG/DL Magnesium Level 2.3 2.3 1.6-2.4 MG/DL Total Bilirubin 0.2 0.1-1.0 MG/DL Aspartate Amino Transf (AST/SGOT) 15 5-34 U/L Alanine Aminotransferase (ALT/SGPT) 21 0-55 U/L Alkaline Phosphatase 56 40-136 U/L Myoglobin 47.9 10.0-92.0 NG/ML Troponin I < 0.30 138.070 *H <0.028 NG/ML Total Protein 7.2 6.4-8.2 GM/DL Albumin 4.5 3.2-4.5 GM/DL Phosphorus Level 3.8 2.3-4.7 MG/DL Triglycerides Level 113 <150 MG/DL Cholesterol Level 186 < 200 MG/DL LDL Cholesterol Direct 134 H 1-129 MG/DL VLDL Cholesterol 23 5-40 MG/DL HDL Cholesterol 44 40-60 MG/DL Physical Exam-(CHC) Physical Exam Vital Signs VS - Last 72 Hours, by Label 04/30/21 04/30/21 04/30/21 04/30/21 18:00 18:05 18:20 20:01 Temp 35.4 35.4 Pulse 70 68 Resp 22 22 B/P (MAP) 114/75 (88) 111/71 (88) Pulse Ox 98 98 100 O2 Delivery Room Air Room Air Nasal Cannula Nasal Cannula O2 Flow Rate 2.00 2.00 2.00 FiO2 98 04/30/21 04/30/21 04/30/21 04/30/21 20:01 20:06 20:30 20:45 Temp 36.0 Pulse 88 85 86 86 Resp 18 12 11 B/P (MAP) 124/70 (88) 129/86 (99) 132/91 (103) Pulse Ox 100 99 97 O2 Delivery Nasal Cannula Nasal Cannula Nasal Cannula O2 Flow Rate 2.00 2.00 2.00 04/30/21 04/30/21 04/30/21 04/30/21 21:00 21:14 21:15 21:30 Pulse 89 89 92 86 Resp 11 20 11 B/P (MAP) 134/91 (104) 134/91 137/86 (109) 138/85 (104) Pulse Ox 97 97 98 O2 Delivery Nasal Cannula Nasal Cannula Nasal Cannula O2 Flow Rate 2.00 2.00 2.00 04/30/21 04/30/21 04/30/21 04/30/21 21:45 22:00 22:15 22:30 Pulse 87 87 89 89 Resp 11 16 13 15 B/P (MAP) 125/95 (106) 125/82 (96) 128/78 (91) 114/79 (89) Pulse Ox 99 97 96 95 O2 Delivery Nasal Cannula Nasal Cannula Nasal Cannula Nasal Cannula O2 Flow Rate 2.00 2.00 2.00 2.00 04/30/21 04/30/21 04/30/21 04/30/21 22:45 23:00 23:13 23:59 Pulse 90 85 87 Resp 17 14 B/P (MAP) 114/72 (84) 117/78 (88) 117/78 Pulse Ox 95 95 95 O2 Delivery Nasal Cannula Nasal Cannula Nasal Cannula O2 Flow Rate 2.00 2.00 2.00 05/01/21 05/01/21 05/01/21 05/01/21 00:00 00:00 01:00 01:00 Temp 36.5 Pulse 86 84 84 Resp 20 18 B/P (MAP) 111/74 (86) 112/74 (87) Pulse Ox 94 96 O2 Delivery Nasal Cannula Nasal Cannula Nasal Cannula O2 Flow Rate 2.00 2.00 2.00 05/01/21 05/01/21 05/01/21 05/01/21 02:00 03:00 04:00 04:00 Temp 36.1 Pulse 74 73 73 Resp 17 23 18 B/P (MAP) 118/72 (87) 119/73 (94) 121/79 (92) Pulse Ox 96 95 96 O2 Delivery Nasal Cannula Nasal Cannula Nasal Cannula Nasal Cannula O2 Flow Rate 2.00 2.00 2.00 2.00 05/01/21 05/01/21 05/01/21 05/01/21 04:00 05:00 05:45 06:00 Pulse 73 73 71 Resp 27 14 B/P (MAP) 118/79 (92) 133/78 131/79 (96) Pulse Ox 95 95 95 O2 Delivery Nasal Cannula Nasal Cannula Nasal Cannula O2 Flow Rate 2.00 2.00 2.00 05/01/21 05/01/21 05/01/21 05/01/21 07:00 07:00 07:30 08:00 Temp 36.0 Pulse 71 71 71 Resp 16 B/P (MAP) 123/73 (90) 130/73 (92) Pulse Ox 95 92 O2 Delivery Nasal Cannula Room Air O2 Flow Rate 2.00 05/01/21 05/01/21 05/01/2121 08:47 09:00 10:00 11:00 Pulse 69 77 74 Resp 21 14 18 B/P (MAP) 126/79 (95) 135/80 (98) 125/70 (88) Pulse Ox 96 93 94 91 O2 Delivery Room Air Room Air Room Air Room Air Capillary Refill : Less Than 3 Seconds General Appearance: WD/WN, no apparent distress HEENT: PERRL/EOMI Neck: non-tender, full range of motion, supple Respiratory: chest non-tender, lungs clear, normal breath sounds, no respiratory distress, no accessory muscle use Cardiovascular: normal peripheral pulses, regular rate, rhythm, no edema, no murmur Gastrointestinal: normal bowel sounds, non tender, soft Back: no CVA tenderness, no vertebral tenderness Extremities: normal range of motion, non-tender, normal inspection, no pedal edema, no calf tenderness, normal capillary refill Neurologic/Psychiatric: investigations director II-XII nml as tested, no motor/sensory deficits, alert, normal mood/affect, oriented x 3 Skin: normal color, warm/dry Lymphatic: no adenopathy Assessment/Plan Assessment/Plan (1) STEMI (ST elevation myocardial infarction) Status: Acute Assessment & Plan: 05/01: Dr Christian Managing, appreciate consultation, Likely back to wheelabrator operator today by Dr Christian to look at RCA Qualifiers: Qualified Codes: I21.3 - ST elevation (STEMI) myocardial infarction of unspecified site (2) CAD (coronary artery disease) Status: Chronic Qualifiers: Qualified Codes: I25.110 - Atherosclerotic heart disease of [place] coronary artery with unstable angina pectoris (3) Systolic CHF, acute Status: Acute Assessment & Plan: 05/01: Statin/Beta Brigette (4) HTN (hypertension) Status: Chronic Qualifiers: Qualified Codes: I10 - Essential (primary) hypertension (5) HLD (hyperlipidemia) Status: Chronic Qualifiers: Qualified Codes: E78.5 - Hyperlipidemia, unspecified (6) Acute kidney injury Status: Resolved (7) Hyperglycemia Status: Acute Assessment & Plan: 05/01: A1c pending Clinical Quality Measures AMI/AHF: ASA po Prior to arrival: No Copy Copies To 1: JAYA HERNANDEZ MD, HOLLY R MD May 01, 2021 11:14
--- NOTE | 2021-05-01 12:55 | Cardiology Progress Note ---
Subjective Date Seen by Provider: May 01, 2021 Time Seen by Provider: 12:53 Subjective/Events-last exam Patient is laying down in bed, feeling better. Still having some chest pain on and off, we had a long discussion about the management plan, had a severe lesion in the right coronary artery that is smaller artery, patient prefer to have all his procedures done during this admission and would like to return to work as s oon as possible Review of Systems General: No Chills, No Night Sweats, No Fatigue, No Malaise, No Appetite, No Other HEENT: No Head Aches, No Visual Changes, No Eye Pain, No Ear Pain, No Dysphasia, No Sinus Congestion, No Post Nasal Drip, No Sore Throat, No Other Pulmonary: No Dyspnea, No Cough, No Pleuritic Chest Pain, No Other Cardiovascular: Chest Pain; No: Palpitations, Orthopnea, Paroxysmal Noc. Dyspnea, Edema, Lt Headedness, Other Objective-Cardiology Exam Last Set of Vital Signs Vital Signs 04/30/21 05/01/21 05/01/21 05/01/21 05/01/21 18:05 07:00 11:55 12:00 12:40 Temp 36.3 Pulse 72 Resp 24 B/P (MAP) 124/88 (100) Pulse Ox 93 O2 Delivery Room Air O2 Flow Rate 2.00 FiO2 98 I&O Intake and Output 04/30/21 23:59 Intake Total 620 ml Output Total 500 ml Balance 120 ml Intake Oral 20 ml IV Total 600 ml Output Urine Total 500 ml Daily Weight Change No General: Alert, Oriented X3, Cooperative, No Acute Distress HEENT: Atraumatic, PERRLA Neck: Supple, No JVD Lungs: Clear to Auscultation, Normal Air Movement Heart: Regular Rate, Normal S1, Normal S2, No Murmurs Abdomen: Normal Bowel Sounds, Soft, No Tenderness, No Hepatosplenomegaly, No Masses Extremities: No Clubbing, No Cyanosis, No Edema, Normal Pulses, No Tenderness/Swelling Skin: No Rashes, No Breakdown, No Significant Lesion Neuro: Normal Gait, Normal Speech, Strength at 5/5 X4 Ext, Normal Tone, Sensation Intact Psych/Mental Status: Mental Status NL, Mood NL Results Lab Laboratory Tests 04/30/21 17:04 05/01/21 05:15 A/P-Cardiology Admission Diagnosis Acute ST elevation myocardial infarction Coronary artery disease Hypertension Hyperlipidemia Assessment/Plan Status post acute ST elevation myocardial infarction in the anterior wall, emergency angioplasty and stenting to the LAD with excellent results. Coronary artery disease, cardiac catheterization carried out on April 30, 2021 showing total occlusion of the proximal LAD, status post balloon angioplasty and stenting using Anneliese 3 x 23 mm drug-eluting stent expanded to 3.12 mm with excellent results, patient has severe stenosis in the proximal right coronary artery, discussed with the patient the management plan requested to have the procedure done as soon as possible due to the fact that he want to return to work and does not want to return at a later point. I will proceed with the procedure today Congestive heart failure, acute left ventricular systolic dysfunction with anterior apical anterior wall hypokinesia, ejection fraction 40%. Started on Toprol and losartan. Continue to monitor Echocardiogram showed anterior wall and apical hypokinesia, ejection fraction 45%. Acute ischemic left ventricular systolic dysfunction. Started on aggressive treatment. Continue to monitor Hypertension, better controlled on the current medication. Continue to monitor Hyperlipidemia, LDL 134, started on Lipitor 80 mg. Continue to monitor Diabetes mellitus, starting on Accu-Chek. Managed by primary care team Acute renal insufficiency, improved with aggressive hydration. Continue to monitor FIONA SEALS MD May 01, 2021 12:55
[2021-05-01] MEDS ORDERED: HEParin 1000 UNIT/ML (10ML VIAL) FOR BOLUS ONE (13:51)
[2021-05-01] MEDS ORDERED: fentaNYL INJ 100 MCG/2 ML AMP ONE (14:14)
[2021-05-01] MEDS ORDERED: MIDAZOLAM 5 MG/5 ML (VERSED) VIAL ONE (14:15)
[2021-05-01] MEDS ORDERED: PATIENT MAY USE OWN MEDS, ALL PO SCH (14:15)
--- NOTE | 2021-05-01 14:17 | Cardiac Cath Report ---
Cardiac Cath Report Physician (s)/Mallet And Die Cutter (s) Physician FIONA SEALS MD Pre-Procedure Diagnosis Pre-Procedure Diagnosis: Coronary artery disease Post-Procedure Note Procedure Start Date: May 01, 2021 Name of Procedure: Stenting to the right coronary artery Findings/Procedure Note PROCEDURE NOTE: 71 years old lady gentleman admitted with acute myocardial infarction to the anterior wall underwent emergency angioplasty and stenting to the anterior wall with excellent result, has severe stenosis in the proximal right coronary artery, decided to stage it for later. This morning patient expressed that he still having some chest pain on and off. Preferred to have the procedure done as soon as possible and limit the amount he has to take off work. I decided to proceed with intervention today. Patient was brought to the cardiac catheterization laboratory, right groin was prepped in a sterile fashion, local anesthesia applied the right groin, 6 Serbian sheath was placed in the right femoral artery, sideholes Iron right guide was advanced to the right coronary artery, BMW wire was advanced and parked distally. I was unable to advance a stent initially. I used 2.5 x 12 mm balloon for predilatation then advanced 2.25 x 12 mm Anneliese stent inflated under 14 jonatan to 2.4 mm, angiogram showed excellent results. At the end of the procedure sheath was removed, closure device deployed. FINDINGS: ANATOMY: Right coronary artery has severe proximal stenosis, fairly small artery, balloon angioplasty and stenting using Anneliese 2.25 x 12 mm expanded to 2.4 mm with excellent results. CONCLUSION: Successful angioplasty and stenting to the right coronary artery using Anneliese 2.25 x 12 mm expanded to 2.4 mm with excellent results. DISCUSSION AND RECOMMENDATION: Continue on aspirin and Plavix, continue to maximize medical therapy Anesthesia Type: Conscious Sedation Estimated blood loss (mL): 25 ml Contrast Amount: 63 ml Total Radiation Dose: 753 mGy Post-Procedure Diagnosis Post-operative diagnosis: Chest pain Coronary artery disease Hypertension Hyperlipidemia FIONA SEALS MD May 01, 2021 2:17 pm
--- NOTE | 2021-05-01 15:29 | Tele-ICU Progress Note ---
Subjective Date Seen by a Provider: May 01, 2021 Time Seen by a Provider: 09:11 Sepsis Event Evaluation Height, Weight, BMI Height: '" Weight: lbs. oz. kg; 33.94 BMI Method: Exam Exam Patient acknowledged, consented, and participated in this virtual visit which was conducted using real time audio/video Vital Signs Date Time Temp Pulse Resp B/P (MAP) Pulse Ox O2 Delivery O2 Flow Rate FiO2 05/01/21 15:20 Room Air 05/01/21 13:00 79 23 133/77 (95) 96 Room Air 05/01/21 12:40 72 05/01/21 12:00 78 24 124/88 (100) 93 Room Air 05/01/21 11:55 36.3 05/01/21 11:15 92 Room Air 05/01/21 11:00 74 18 125/70 (88) 91 Room Air 05/01/21 10:00 77 14 135/80 (98) 94 Room Air 05/01/21 09:00 69 21 126/79 (95) 93 Room Air 05/01/21 08:47 96 Room Air 05/01/21 08:00 71 16 130/73 (92) 92 Room Air 05/01/21 07:30 36.0 05/01/21 07:00 71 05/01/21 07:00 71 123/73 (90) 95 Nasal Cannula 2.00 05/01/21 06:00 71 14 131/79 (96) 95 Nasal Cannula 2.00 05/01/21 05:45 73 133/78 05/01/21 05:00 73 27 118/79 (92) 95 Nasal Cannula 2.00 05/01/21 04:00 95 Nasal Cannula 2.00 05/01/21 04:00 73 18 121/79 (92) 96 Nasal Cannula 2.00 05/01/21 04:00 36.1 Nasal Cannula 2.00 05/01/21 03:00 73 23 119/73 (94) 95 Nasal Cannula 2.00 05/01/21 02:00 74 17 118/72 (87) 96 Nasal Cannula 2.00 05/01/21 01:00 84 05/01/21 01:00 84 18 112/74 (87) 96 Nasal Cannula 2.00 05/01/21 00:00 86 20 111/74 (86) 94 Nasal Cannula 2.00 05/01/21 00:00 36.5 Nasal Cannula 2.00 04/30/21 23:59 95 Nasal Cannula 2.00 04/30/21 23:13 87 117/78 04/30/21 23:00 85 14 117/78 (88) 95 Nasal Cannula 2.00 04/30/21 22:45 90 17 114/72 (84) 95 Nasal Cannula 2.00 04/30/21 22:30 89 15 114/79 (89) 95 Nasal Cannula 2.00 04/30/21 22:15 89 13 128/78 (91) 96 Nasal Cannula 2.00 04/30/21 22:00 87 16 125/82 (96) 97 Nasal Cannula 2.00 04/30/21 21:45 87 11 125/95 (106) 99 Nasal Cannula 2.00 04/30/21 21:30 86 11 138/85 (104) 98 Nasal Cannula 2.00 04/30/21 21:15 92 20 137/86 (109) 97 Nasal Cannula 2.00 04/30/21 21:14 89 134/91 04/30/21 21:00 89 11 134/91 (104) 97 Nasal Cannula 2.00 04/30/21 20:45 86 11 132/91 (103) 97 Nasal Cannula 2.00 04/30/21 20:30 86 12 129/86 (99) 99 Nasal Cannula 2.00 04/30/21 20:06 85 04/30/21 20:01 36.0 88 18 124/70 (88) 100 Nasal Cannula 2.00 04/30/21 20:01 100 Nasal Cannula 2.00 04/30/21 18:20 35.4 68 22 111/71 (88) 98 Nasal Cannula 2.00 04/30/21 18:05 Room Air 2.00 98 04/30/21 18:00 35.4 70 22 114/75 (88) 98 Room Air I & O 05/01/21 07:00 Intake Total 3220 ml Output Total 1250 ml Balance 1970 ml Height & Weight Height: '" Weight: lbs. oz. kg; 33.94 BMI Method: General Appearance: Other (Diaphoretic, moderate distress) HEENT: PERRL/EOMI Neck: Non Tender, Supple Respiratory: Lungs Clear Cardiovascular: Regular Rate, Rhythm, No Edema Capillary Refill: Less Than 3 Seconds Gastrointestinal: normal bowel sounds, non tender, soft Neurologic/Psychiatric: Alert, Oriented x3, Normal Mood/Affect Skin: Diaphoresis Results Lab Laboratory Tests 04/30/21 17:04 05/01/21 05:15 Assessment/Plan Assessment/Plan Available chart/ vitals / labs / Images reviewed Video assessment done using teleICU camera, rest of exam as per RN Discussed with RN Events overnight : Afebrile hemodynamically stable Drips: As per RN exam - aao . nonfocal , CTA Consultants: cards A/P Acute ST elevation myocardial infarction in the anterior wall with emergency cardiac catheterization and stenting to the LAD Congestive heart failure, acute left ventricular systolic dysfunction - Integrilin drip, diuresis and other meds as per cards - laborer heading today JARRED - improved Lines : Martinez: + OG: Nutrition: po Analgesia: na Anxiety/ delirium na VTE Prophylaxis: SCD - refusing Stress Ulcer Prophylaxis: na Glycemic Control: + Plans in collaboration with bedside consultants and IM MDs. Discussed with RN to reach out if any questions or concerns A total of 20 minutes of critical care time was devoted to this patient today, required to treat and/or prevent further deterioration of critical care condition ( as above ) . LIAT CROUCH MD May 01, 2021 15:29
[2021-05-02] MEDS: NS IV 1000 ML 1,000 ML IV SCH (00:44)
--- NOTE | 2021-05-02 05:35 | Discharge Inst-Post CATH ---
Discharge Inst-CATH/EP Problems Reviewed?: Yes Post Cardiac Cath/EP D/C Inst Follow Up/Plan Appointment with Dr Christian's office in 2-4 weeks <b>CARDIAC CATH/EP PROCEDURE DISCHARGE INSTRUCTIONS</b> ACTIVITY * Go Home directly and rest. * Limit activity of the leg (or wrist if it was used) for 7 days including aerobics, swimming, jogging, bicycling, etc. * Restrict stair-climbing for 7 days if possible, if not, climb up with your non-cath leg, then bring together on the same step. * Avoid lifting, pushing, pulling or excessive movement of the affected extremity for 7 days. * Customary sexual activity may be resumed after 2 days-use caution not to use a position that strains or causes pain to the affected extremity. * No driving for 24 hours. * NO SMOKING. * Avoid straining for bowel movements for 7 days. * Gentle walking on level ground is allowed. * Returning to work will depend on the type of procedure and the results. Your doctor will discuss this with you. CALL YOUR DOCTOR FOR ANY OF THE FOLLOWING: *If bleeding from the puncture site occurs- Apply gentle pressure to site with clean cloth and call your doctor or EMS. * If a knot or lump forms under the skin, increases in size, or causes pain. * If bruising appears to be worsening or moving further down your leg instead of disappearing. * Temperature above 101 F. CARE OF YOUR GROIN INCISION; * Bruising or purple discoloration of the skin near the puncture site is common. * You may shower only, no bathtub bathing for 5 days. Be careful to avoid slipping as your leg may feel stiff. * If a closure device was used on your femoral artery, please see the attached guide regarding care of the device and your leg. * Leave dressing on FOR 24 hours. CARE OF YOUR WRIST INCISION; * Bruising or purple discoloration of the skin near the puncture site is common. * You may shower. * DO NOT submerge wrist. * Leave dressing on FOR 24 hours. FIONA CHRISTIAN MD May 02, 2021 05:35
[2021-05-02] MEDS ORDERED: ASPI-1238 PO (05:37)
[2021-05-02] MEDS ORDERED: ATOR80TA76 PO (05:37)
[2021-05-02] MEDS ORDERED: MTP25TSR PO (05:37)
[2021-05-02] MEDS ORDERED: CLOP75TA28 PO (05:37)
[2021-05-02] MEDS: FUROSEMIDE 40 MG/4 ML INJ (LASIX) IVP SCH (05:43)
[2021-05-02 05:55] LABS: BASOPHILS % (AUTO) 0 % (0-10); EOSINOPHILS # (AUTO) 0.1 10^3/uL (0.0-0.3); EOSINOPHILS % (AUTO) 1 % (0-10); HEMATOCRIT 45 % (40-54); HEMOGLOBIN 14.4 g/dL (13.3-17.7); LYMPHOCYTES # (AUTO) 1.8 10^3/uL (1.0-4.0); LYMPHOCYTES % (AUTO) 17 % (12-44); MEAN CORPUSCULAR HEMOGLOBIN 30 pg (25-34); MEAN CORPUSCULAR HGB CONC 32 g/dL (32-36); MEAN CORPUSCULAR VOLUME 95 fL (80-99); MEAN PLATELET VOLUME 10.5 fL (9.0-12.2); MONOCYTES # (AUTO) 0.9 10^3/uL (0.0-1.0); MONOCYTES % (AUTO) 8 % (0-12); NEUTROPHILS # (AUTO) 7.8 10^3/uL (1.8-7.8); NEUTROPHILS % (AUTO) 73 % (42-75); PLATELET COUNT 234 10^3/uL (130-400); WHITE BLOOD COUNT 10.6 10^3/uL (4.3-11.0)
[2021-05-02 06:17] LABS: CHLORIDE 107 MMOL/L (98-107); POTASSIUM 4.3 MMOL/L (3.6-5.0); SODIUM 138 MMOL/L (135-145)
[2021-05-02 06:18] LABS: CALCIUM 8.3 MG/DL (8.5-10.1)
[2021-05-02 06:19] LABS: GLUCOSE 100 MG/DL (70-105)
[2021-05-02 06:20] LABS: CARBON DIOXIDE 22 MMOL/L (21-32)
[2021-05-02 06:22] LABS: PHOSPHORUS 2.8 MG/DL (2.3-4.7)
[2021-05-02 06:23] LABS: BUN/CREATININE RATIO 16; CREATININE SERUM 0.99 MG/DL (0.60-1.30); GFR ESTIMATED > 60
[2021-05-02] MEDS: POTASSIUM CL 10MEQ/50ML IVPB 50 ML IV SCH (06:46)
[2021-05-02] MEDS: MAGNESIUM 1 GM/100 ML IVPB 100 ML IV SCH (06:46)
[2021-05-02] MEDS: KCL 20 MEQ TAB (K-DUR) PO SCH (06:46)
--- NOTE | 2021-05-02 08:02 | Cardiology Discharge Summary ---
Discharge Summary Hospital Course Problems Reviewed?: Yes Problems/Diagnosis: (1) STEMI (ST elevation myocardial infarction) Status: Acute Assessment & Plan: 05/01: Dr Christian Managing, appreciate consultation, Likely back to rn labor delivery today by Dr Christian to look at RCA Qualifiers: Qualified Codes: I21.3 - ST elevation (STEMI) myocardial infarction of unspecified site (2) CAD (coronary artery disease) Status: Chronic Qualifiers: Qualified Codes: I25.110 - Atherosclerotic heart disease of [place] coronary artery with unstable angina pectoris (3) Systolic CHF, acute Status: Acute Assessment & Plan: 05/01: Statin/Beta Brigette (4) HTN (hypertension) Status: Chronic Qualifiers: Qualified Codes: I10 - Essential (primary) hypertension (5) HLD (hyperlipidemia) Status: Chronic Qualifiers: Qualified Codes: E78.5 - Hyperlipidemia, unspecified (6) Acute kidney injury Status: Resolved Resolution Date/Time: 05/01/21 @ 11:20 am (7) Hyperglycemia Status: Acute Assessment & Plan: 05/01: A1c pending Hospital Course Date of Admission: Apr 30, 2021 at 7:44 pm Admission Diagnosis : Family Physician/Provider: Иван Hernandez MD Date of Discharge: 05/02/21 Discharge Diagnosis: [Acute ST elevation myocardial infarction Coronary artery disease Congestive heart failure, acute left ventricular systolic dysfunction, ischemic cardiomyopathy Hypertension Hyperlipidemia Diabetes mellitus] Hospital Course: [ Status post acute ST elevation myocardial infarction in the anterior wall, emergency angioplasty and stenting to the LAD with excellent results. Coronary artery disease, cardiac catheterization carried out on April 30, 2021 showing total occlusion of the proximal LAD, status post balloon angioplasty and stenting using Anneliese 3 x 23 mm drug-eluting stent expanded to 3.12 mm with excellent results, patient has severe stenosis in the proximal right coronary artery, another intervention was done on May 01, 2021 with successful deployment of Anneliese 2.25 x 12 mm to the right coronary artery expanded to 2.4 mm with excellent results Congestive heart failure, acute left ventricular systolic dysfunction with anterior apical anterior wall hypokinesia, ejection fraction 40%. Started on Toprol and losartan. Continue to monitor Echocardiogram showed anterior wall and apical hypokinesia, ejection fraction 45%. Acute ischemic left ventricular systolic dysfunction. Started on aggressive treatment. Continue to monitor Hypertension, better controlled on the current medication. Continue to monitor Hyperlipidemia, LDL 134, started on Lipitor 80 mg. Continue to monitor Diabetes mellitus, starting on Accu-Chek. Managed by primary care team Acute renal insufficiency, improved with aggressive hydration. Continue to monitor] Labs and Pending Lab Test: Laboratory Tests 05/02/21 05:07: White Blood Count 10.6, Red Blood Count 4.75, Hemoglobin 14.4, Hematocrit 45, Mean Corpuscular Volume 95, Mean Corpuscular Hemoglobin 30, Mean Corpuscular Hemoglobin Concent 32, Red Cell Distribution Width 13.9, Platelet Count 234, Mean Platelet Volume 10.5, Immature Granulocyte % (Auto) 0, Neutrophils (%) (Auto) 73, Lymphocytes (%) (Auto) 17, Monocytes (%) (Auto) 8, Eosinophils (%) (Auto) 1, Basophils (%) (Auto) 0, Neutrophils # (Auto) 7.8, Lymphocytes # (Auto) 1.8, Monocytes # (Auto) 0.9, Eosinophils # (Auto) 0.1, Basophils # (Auto) 0.0, Immature Granulocyte # (Auto) 0.0, Sodium Level 138, Potassium Level 4.3, Chloride Level 107, Carbon Dioxide Level 22, Anion Gap 9, Blood Urea Nitrogen 16, Creatinine 0.99, Estimat Glomerular Filtration Rate > 60, BUN/Creatinine Ratio 16, Glucose Level 100, Calcium Level 8.3L, Phosphorus Level 2.8, Magnesium Level 2.0 Microbiology 04/30/21 MRSA Screen - Final, Complete MRSA not isolated Home Meds Active Aspirin EC (Aspirin) 81 Mg Tablet.dr 81 Mg PO DAILY Metoprolol Succinate 25 Mg Tab.er.24h 25 Mg PO DAILY Atorvastatin Calcium 80 Mg Tablet 80 Mg PO HS Clopidogrel (Clopidogrel Bisulfate) 75 Mg Tablet 75 Mg PO DAILY Reported Lisinopril 10 Mg Tablet 10 Mg PO DAILY Pantoprazole Sodium 40 Mg Tablet.dr 40 Mg PO DAILY Assessment/Pt DC Instructions Patient was educated on medication compliance with medication. Appointment for follow-up in 2 weeks Discharge Diet: No Restrictions Discharge Physical Examination Allergies: Coded Allergies: No Known Drug Allergies (Unverified , 07/27/19) General Appearance: No Apparent Distress, WD/WN HEENT: PERRL/EOMI, TMs Normal, Normal ENT Inspection, Pharynx Normal Respiratory: Chest Non Tender, Lungs Clear, Normal Breath Sounds, No Accessory Muscle Use, No Respiratory Distress Cardiovascular: Regular Rate, Rhythm, No Edema, No Gallop, No JVD, No Murmur, Normal Peripheral Pulses Gastrointestinal: Normal Bowel Sounds, No Organomegaly, No Pulsatile Mass, Non Tender, Soft Extremity: Normal Capillary Refill, Normal Inspection, Normal Range of Motion, Non Tender, No Calf Tenderness Skin: Normal Color, Warm/Dry Neurologic/Psychiatric: Alert, Oriented x3, No Motor/Sensory Deficits, Normal Mood/Affect, apron trimmer II-XII Norm as Tested Clinical Quality Measures AMI/AHF: ASA po Prior to arrival: FIONA Singh MD May 02, 2021 8:02 am
[2021-05-02] MEDS: LOSARTAN 25 MG (COZAAR) TAB PO SCH (08:04)
[2021-05-02] MEDS: PANTOPRAZOLE 40 MG (PROTONIX) TAB PO SCH (08:04)
[2021-05-02] MEDS: ASPIRIN E.C. 81 MG (ECOTRIN) TAB PO SCH (08:04)
[2021-05-02] MEDS: CLOPIDOGREL 75 MG (PLAVIX) TABLET PO SCH (08:04)
--- NOTE | 2021-05-02 09:25 | Tele-ICU Progress Note ---
Subjective Date Seen by a Provider: May 02, 2021 Time Seen by a Provider: 09:24 Sepsis Event Evaluation Height, Weight, BMI Height: '" Weight: lbs. oz. kg; 33.94 BMI Method: Exam Exam Patient acknowledged, consented, and participated in this virtual visit which was conducted using real time audio/video Vital Signs Date Time Temp Pulse Resp B/P (MAP) Pulse Ox O2 Delivery O2 Flow Rate FiO2 05/02/21 08:00 36.0 05/02/21 07:58 93 Room Air 05/02/21 06:00 72 18 134/78 (96) 95 Room Air 05/02/21 05:00 70 31 120/76 (91) 92 Room Air 05/02/21 04:00 95 Room Air 05/02/21 04:00 68 13 129/79 (96) 94 Room Air 05/02/21 04:00 36.8 05/02/21 03:00 70 14 124/79 (94) 93 Room Air 05/02/21 02:00 73 122/80 (94) 96 Room Air 05/02/21 01:00 73 05/02/21 01:00 73 14 123/76 (92) 93 Room Air 05/02/21 00:12 74 13 118/76 (90) 95 Room Air 05/02/21 00:00 36.6 05/01/21 23:59 95 Room Air 05/01/21 23:00 75 16 126/75 (92) 92 Room Air 05/01/21 22:00 67 12 118/66 (83) 93 Room Air 05/01/21 21:00 72 14 117/76 (90) 95 Room Air 05/01/21 20:00 94 Room Air 05/01/21 20:00 76 21 100/82 (88) 95 Room Air 05/01/21 19:42 36.7 05/01/21 19:00 79 21 134/74 (94) 97 Room Air 05/01/21 19:00 79 05/01/21 18:00 70 27 133/72 (92) 97 Room Air 05/01/21 17:00 73 28 129/83 (98) 95 Room Air 05/01/21 16:00 36.8 05/01/21 16:00 67 13 124/77 (93) 95 Room Air 05/01/21 15:30 68 14 126/74 (91) 94 Room Air 05/01/21 15:20 Room Air 05/01/21 15:15 72 14 122/72 (94) 94 Room Air 05/01/21 15:00 67 20 122/78 (93) 93 Room Air 05/01/21 14:45 73 28 129/74 (95) 94 Room Air 05/01/21 14:39 76 34 118/95 (102) 96 Room Air 05/01/21 13:00 79 23 133/77 (95) 96 Room Air 05/01/21 12:40 72 05/01/21 12:00 78 24 124/88 (100) 93 Room Air 05/01/21 11:55 36.3 05/01/21 11:15 92 Room Air 05/01/21 11:00 74 18 125/70 (88) 91 Room Air 05/01/21 10:00 77 14 135/80 (98) 94 Room Air I & O 05/02/21 07:00 Intake Total 6000 ml Output Total 3250 ml Balance 2750 ml Height & Weight Height: '" Weight: lbs. oz. kg; 33.94 BMI Method: General Appearance: No Apparent Distress, WD/WN HEENT: PERRL/EOMI, TMs Normal, Normal ENT Inspection, Pharynx Normal Neck: Non Tender, Supple Respiratory: Chest Non Tender, Lungs Clear, Normal Breath Sounds, No Accessory Muscle Use, No Respiratory Distress Cardiovascular: Regular Rate, Rhythm, No Edema, No Gallop, No JVD, No Murmur, Normal Peripheral Pulses Capillary Refill: Less Than 3 Seconds Gastrointestinal: normal bowel sounds, non tender, soft Extremity: Normal Capillary Refill, Normal Inspection, Normal Range of Motion, Non Tender, No Calf Tenderness Neurologic/Psychiatric: Alert, Oriented x3, No Motor/Sensory Deficits, Normal Mood/Affect, incident response analyst II-XII Norm as Tested Skin: Normal Color, Warm/Dry Results Lab Laboratory Tests 04/30/21 17:04 05/01/21 05:15 05/02/21 05:07 Assessment/Plan Assessment/Plan Available chart/ vitals / labs / Images reviewed Video assessment done using teleICU camera Events overnight : Afebrile hemodynamically stable Drips: Consultants: cards A/P Acute ST elevation myocardial infarction in the anterior wall with emergency cardiac catheterization and stenting to the LAD Congestive heart failure, acute left ventricular systolic dysfunction - Integrilin drip, diuresis and other meds as per cards 05/01 to CCL for intervention to RCA ptca and stent JARRED - improved Lines : Martinez: + OG: Nutrition: po Analgesia: na Anxiety/ delirium na VTE Prophylaxis: SCD - refusing Stress Ulcer Prophylaxis: na Glycemic Control: + CONTINUE TO MONITOR PER USUAL TELE-ICU PROTOCOL - will sign off ,No need for Tele-ICU consult A total of 10 minutes of critical care time was devoted to this patient today, required to treat and/or prevent further deterioration of critical care condition ( as above ) . LIAT CROUCH MD May 02, 2021 09:25
[2021-05-02 09:46] VITALS: BP 131/71
--- NOTE | 2021-05-02 11:49 | Progress Note ---
Subjective Subjective/Events-last exam Patient doing well this AM. Denies any chest pain or shortness of breath. Tolerating PO diet and ambulation. Review of Systems General: No Chills; Fatigue; No Malaise Pulmonary: No Dyspnea, No Cough Cardiovascular: No: Chest Pain, Palpitations, Edema Gastrointestinal: No: Nausea, Vomiting, Abdominal Pain, Diarrhea, Constipation Genitourinary: No Dysuria, No Incontinence, No Hematuria Neurological: Weakness; No: Confusion Objective Exam Last Set of Vital Signs Vital Signs Date Time Temp Pulse Resp B/P (MAP) Pulse Ox O2 Delivery O2 Flow Rate FiO2 05/02/21 09:46 36.0 78 24 131/71 97 Room Air 05/01/21 07:00 2.00 04/30/21 18:05 98 Capillary Refill : Less Than 3 Seconds I&O Intake and Output 05/02/21 00:00 Intake Total 7000 ml Output Total 2950 ml Balance 4050 ml Intake Oral 1900 ml IV Total 5100 ml Output Urine Total 2950 ml General: Alert, Oriented X3, Cooperative, No Acute Distress HEENT: Mucous Memb Moist/[place] Lungs: Clear to Auscultation, Normal Air Movement Heart: Regular Rate, No Murmurs Abdomen: Normal Bowel Sounds, Soft, No Tenderness, No Masses Extremities: No Edema, No Tenderness/Swelling Skin: No Rashes, No Breakdown Neuro: Strength at 5/5 X4 Ext, Sensation Intact, Cranial Nerves 3-12 NL Psych/Mental Status: Mental Status NL, Mood NL Results/Procedures Lab Laboratory Tests 05/02/21 05:07: White Blood Count 10.6, Red Blood Count 4.75, Hemoglobin 14.4, Hematocrit 45, Mean Corpuscular Volume 95, Mean Corpuscular Hemoglobin 30, Mean Corpuscular Hemoglobin Concent 32, Red Cell Distribution Width 13.9, Platelet Count 234, Mean Platelet Volume 10.5, Immature Granulocyte % (Auto) 0, Neutrophils (%) (Auto) 73, Lymphocytes (%) (Auto) 17, Monocytes (%) (Auto) 8, Eosinophils (%) (Auto) 1, Basophils (%) (Auto) 0, Neutrophils # (Auto) 7.8, Lymphocytes # (Auto) 1.8, Monocytes # (Auto) 0.9, Eosinophils # (Auto) 0.1, Basophils # (Auto) 0.0, Immature Granulocyte # (Auto) 0.0, Sodium Level 138, Potassium Level 4.3, Chloride Level 107, Carbon Dioxide Level 22, Anion Gap 9, Blood Urea Nitrogen 16, Creatinine 0.99, Estimat Glomerular Filtration Rate > 60, BUN/Creatinine R atio 16, Glucose Level 100, Calcium Level 8.3L, Phosphorus Level 2.8, Magnesium Level 2.0 Microbiology 04/30/21 MRSA Screen - Final, Complete MRSA not isolated Assessment/Plan Assessment/Plan (1) STEMI (ST elevation myocardial infarction) Status: Acute Assessment & Plan: 05/01: Dr Christian Managing, appreciate consultation, Likely back to director labor standards today by Dr Christian to look at RCA 05/02: Patient doing well, D/c today with close f.u with Cardiology and PCP Qualifiers: Qualified Codes: I21.3 - ST elevation (STEMI) myocardial infarction of unspecified site (2) CAD (coronary artery disease) Status: Chronic Qualifiers: Qualified Codes: I25.110 - Atherosclerotic heart disease of [place] coronary artery with unstable angina pectoris (3) Systolic CHF, acute Status: Acute Assessment & Plan: 05/01: Statin/Beta Brigette (4) HTN (hypertension) Status: Chronic Qualifiers: Qualified Codes: I10 - Essential (primary) hypertension (5) HLD (hyperlipidemia) Status: Chronic Qualifiers: Qualified Codes: E78.5 - Hyperlipidemia, unspecified (6) Acute kidney injury Status: Resolved (7) Hyperglycemia Status: Acute Assessment & Plan: 05/01: A1c pending 05/02: 6.3, Pre DM range, will forward to PCP, patient would be a good candidate for Metformin Clinical Quality Measures AMI/AHF: ASA po Prior to arrival: HAMILTON Castillo MD May 02, 2021 11:49
== END 2021-05-02 09:44 | disposition home or self-care (01) | DRG 246 ==
LOC: EDUNIT# 18:00 → ER FS 18:02 → CATH 19:01 → ICU 19:44
PROVIDERS: ADMIT Internal Medicine Cardiovascular Disease; ATTEND Internal Medicine Cardiovascular Disease
PROC: 027034Z Dilation of Coronary Artery, One Artery with Drug-eluting Intraluminal Device, Percutaneous Approach (ICD-10-PCS; principal; 2021-04-30)
PROC: 4A023N7 Measurement of Cardiac Sampling and Pressure, Left Heart, Percutaneous Approach (ICD-10-PCS; 2021-04-30)
PROC: B2111ZZ Fluoroscopy of Multiple Coronary Arteries using Low Osmolar Contrast (ICD-10-PCS; 2021-04-30)
PROC: B2151ZZ Fluoroscopy of Left Heart using Low Osmolar Contrast (ICD-10-PCS; 2021-04-30)
DX: I21.3 ST elevation (STEMI) myocardial infarction of unspecified site (principal); I50.21 Acute systolic (congestive) heart failure; N17.9 Acute kidney failure, unspecified; K21.9 Gastro-esophageal reflux disease without esophagitis; I11.0 Hypertensive heart disease with heart failure; E78.5 Hyperlipidemia, unspecified; E11.65 Type 2 diabetes mellitus with hyperglycemia; I25.110 Atherosclerotic heart disease of native coronary artery with unstable angina pectoris; F41.9 Anxiety disorder, unspecified; Z85.820 Personal history of malignant melanoma of skin
CPT/HCPCS: 36415; 71045; 80048; 80053; 80061; 83036; 83735; 83874; 84100; 84484; 85025; 85027; 85610; 85730; 87081; 93005; 93041; 93306; 93458; 99291

== ENCOUNTER → 2021-08-02 | Outpatient (CLI) | payer MEDICARE, OTHER ==
[~2021-08-02] MED LIST changes: +ASPI-1238 PO; +ATOR80TA76 PO; +CLOP75TA28 PO; +LISI10TA25 PO; +MTP25TSR PO
== END ==
LOC: CARD 08:42
PROVIDERS: ATTEND Internal Medicine Cardiovascular Disease
DX: I35.8 Other nonrheumatic aortic valve disorders (principal); I10 Essential (primary) hypertension; I25.10 Atherosclerotic heart disease of native coronary artery without angina pectoris
CPT/HCPCS: 93306

== ENCOUNTER 2022-07-27 10:36 | Emergency (ER) | payer MEDICARE, OTHER ==
[~2022-07-27] VITALS: Ht 177 cm; Wt 107.0 kg
[2022-07-27 11:02] LABS: BASOPHILS # (AUTO) 0.1 10^3/uL (0.0-0.1); BASOPHILS % (AUTO) 1 % (0-10); EOSINOPHILS # (AUTO) 0.2 10^3/uL (0.0-0.3); EOSINOPHILS % (AUTO) 3 % (0-10); HEMATOCRIT 49 % (40-54); HEMOGLOBIN 16.2 g/dL (13.3-17.7); LYMPHOCYTES # (AUTO) 1.4 10^3/uL (1.0-4.0); LYMPHOCYTES % (AUTO) 17 % (12-44); MEAN CORPUSCULAR HEMOGLOBIN 31 pg (25-34); MEAN CORPUSCULAR HGB CONC 33 g/dL (32-36); MEAN CORPUSCULAR VOLUME 93 fL (80-99); MEAN PLATELET VOLUME 9.7 fL (9.0-12.2); MONOCYTES # (AUTO) 0.7 10^3/uL (0.0-1.0); MONOCYTES % (AUTO) 9 % (0-12); NEUTROPHILS # (AUTO) 5.6 10^3/uL (1.8-7.8); NEUTROPHILS % (AUTO) 70 % (42-75); PLATELET COUNT 309 10^3/uL (130-400); WHITE BLOOD COUNT 7.9 10^3/uL (4.3-11.0)
--- NOTE | 2022-07-27 11:04 | Diagnostic Imaging Report ---
EXAMINATION: Chest 1 view HISTORY: Chest pain COMPARISON: 04/30/2021 FINDINGS: There is unchanged mild left base atelectasis. Otherwise, the lungs are clear without edema or pneumonia. No pleural effusion or pneumothorax. Heart size is normal. IMPRESSION: 1. Mild atelectasis, otherwise clear lungs. Dictated by: Dictated on workstation # [id number]
[2022-07-27 11:19] LABS: ALANINE AMINOTRANSFERASE 23 U/L (0-55); ALKALINE PHOSPHATASE 76 U/L (40-136); BILIRUBIN,TOTAL 0.6 MG/DL (0.1-1.0); BUN/CREATININE RATIO 12; CARBON DIOXIDE 26 MMOL/L (21-32); CHLORIDE 103 MMOL/L (98-107); CREATININE SERUM 0.99 MG/DL (0.60-1.30); GFR ESTIMATED 80; GLUCOSE 137 MG/DL (70-105); POTASSIUM 4.2 MMOL/L (3.6-5.0); SODIUM 139 MMOL/L (135-145)
[2022-07-27 11:20] LABS: ALBUMIN 4.3 GM/DL (3.2-4.5); TOTAL PROTEIN 7.1 GM/DL (6.4-8.2)
--- NOTE | 2022-07-27 11:22 | ED Cough/URI ---
General Chief Complaint: Cough/Cold/Flu Symptoms Stated Complaint: LT ARM/LT SIDE PAIN; COUGH Nursing Triage Note: Patient has presented to ER with cc of sharp left sided chest pain when he takes a breath. Patient reports that he has a chronic cough for the last 3 years. He denies any known or recent injury. Source: patient Exam Limitations: no limitations History of Present Illness Date Seen by Provider: Jul 27, 2022 Time Seen by Provider: 10:45 Initial Comments Patient is a 72-year-old male with history of CAD, [place] who presents with sharp left sided flank pain rating to left shoulder starting this morning. Patient reports shortness of breath and pain with deep breathing. He denies fever chills, cough, sore throat. He denies chest wall tenderness or upper abdominal pain. No constipation or diarrhea. No fever chills or sweats. No history of kidney stones hematuria or dysuria. Patient took 2 mile prior to ED arrival with partial improvement of symptoms. Timing/Duration: other Severity/Quality: other Prior Episodes/Possible Cause: other Modifying Factors: Improves With Other Associated Symptoms: other Allergies and Home Medications Allergies Coded Allergies: No Known Drug Allergies (Unverified , 07/27/19) Patient Home Medication List Home Medication List Reviewed: Yes Aspirin (Aspirin EC) 81 Mg Tablet., 81 MG PO DAILY Prescribed by: FIONA SEALS on 05/02/21536 Atorvastatin Calcium (Atorvastatin Calcium) 80 Mg Tablet, 80 MG PO HS Prescribed by: FIONA SEALS on 05/02/21536 Clopidogrel Bisulfate (Clopidogrel) 75 Mg Tablet, 75 MG PO DAILY Prescribed by: FIONA SEALS on 05/02/2137 Lisinopril (Lisinopril) 10 Mg Tablet, 10 MG PO DAILY, (Reported) Entered as Reported by: FELICIA BLANC on 04/30/21 1838 Metoprolol Succinate (Metoprolol Succinate) 25 Mg Tab.er.24h, 25 MG PO DAILY Prescribed by: FIONA SEALS on 05/02/2137 Pantoprazole Sodium (Pantoprazole Sodium) 40 Mg Tablet., 40 MG PO DAILY, (Reported) Entered as Reported by: VILMA DICKENS on 07/27/19 1212 Review of Systems Review of Systems Constitutional: see HPI EENTM: see HPI Respiratory: see HPI Cardiovascular: see HPI Gastrointestinal: see HPI Genitourinary: see HPI Musculoskeletal: see HPI Skin: see HPI Psychiatric/Neurological: See HPI Hematologic/Lymphatic: See HPI Immunological/Allergic: see HPI All Other Systems Reviewed Negative Unless Noted: No Past Jhrkqmo-Fzhdya-Wlskmx Hx Patient Social History Tobacco Use?: Yes Use of E-Cig and/or Vaping dev: No Substance use?: No Alcohol Use?: No Pt feels they are or have been: Unable to obtain Seasonal Allergies Seasonal Allergies: Yes Past Medical History Surgeries: Yes (LESION REMOVED FROM ARM) Respiratory: No Cardiac: No Neurological: No Genitourinary: No Gastrointestinal: Yes Gastroesophageal Reflux Musculoskeletal: No Endocrine: No HEENT: No Cancer: Yes Melanoma What Type of Treatment Did You: Surgical Intervention Psychosocial: No Integumentary: No Blood Disorders: No Physical Exam Vital Signs - First Documented 07/27/22 10:51 Temp 35.8 Pulse 77 Resp 20 B/P (MAP) 182/93 (122) Pulse Ox 97 O2 Delivery Room Air Capillary Refill : Height: '" Weight: lbs. oz. kg; 34.00 BMI Method: General Appearance: WD/WN, mild distress (Mild distress secondary to pain.) Eyes: Bilateral Eye Normal Inspection, Bilateral Eye PERRL, Bilateral Eye EOMI HEENT: PERRL/EOMI, normal ENT inspection Neck: non-tender, full range of motion Respiratory: chest non-tender, lungs clear Cardiovascular: regular rate, rhythm, no edema Gastrointestinal: non tender, soft Extremities: non-tender Neurologic/Psychiatric: alert, normal mood/affect, oriented x 3 Progress/Results/Core Measures Suspected Sepsis SIRS Temperature: Pulse: 77 Respiratory Rate: 20 Laboratory Tests 07/27/22 10:46: White Blood Count 7.9 Blood Pressure 182 /93 Mean: 122 Laboratory Tests 07/27/22 10:46: Creatinine 0.99, Platelet Count 309, Total Bilirubin 0.6 Results/Orders Lab Results Laboratory Tests Test 07/27/22 10:46 07/27/22 13:17 Range/Units White Blood Count 7.9 4.3-11.0 10^3/uL Red Blood Count 5.26 4.30-5.52 10^6/uL Hemoglobin 16.2 13.3-17.7 g/dL Hematocrit 49 40-54 % Mean Corpuscular Volume 93 80-99 fL Mean Corpuscular Hemoglobin 31 25-34 pg Mean Corpuscular Hemoglobin Concent 33 32-36 g/dL Red Cell Distribution Width 13.9 10.0-14.5 % Platelet Count 309 130-400 10^3/uL Mean Platelet Volume 9.7 9.0-12.2 fL Immature Granulocyte % (Auto) 0 % Neutrophils (%) (Auto) 70 42-75 % Lymphocytes (%) (Auto) 17 12-44 % Monocytes (%) (Auto) 9 0-12 % Eosinophils (%) (Auto) 3 0-10 % Basophils (%) (Auto) 1 0-10 % Neutrophils # (Auto) 5.6 1.8-7.8 10^3/uL Lymphocytes # (Auto) 1.4 1.0-4.0 10^3/uL Monocytes # (Auto) 0.7 0.0-1.0 10^3/uL Eosinophils # (Auto) 0.2 0.0-0.3 10^3/uL Basophils # (Auto) 0.1 0.0-0.1 10^3/uL Immature Granulocyte # (Auto) 0.0 0.0-0.1 10^3/uL D-Dimer 0.43 0.00-0.49 UG/ML Sodium Level 139 135-145 MMOL/L Potassium Level 4.2 3.6-5.0 MMOL/L Chloride Level 103 98-107 MMOL/L Carbon Dioxide Level 26 21-32 MMOL/L Anion Gap 10 5-14 MMOL/L Blood Urea Nitrogen 12 7-18 MG/DL Creatinine 0.99 0.60-1.30 MG/DL Estimat Glomerular Filtration Rate 80 BUN/Creatinine Ratio 12 Glucose Level 137 H 70-105 MG/DL Calcium Level 9.0 8.5-10.1 MG/DL Corrected Calcium 8.8 8.5-10.1 MG/DL Total Bilirubin 0.6 0.1-1.0 MG/DL Aspartate Amino Transf (AST/SGOT) 15 5-34 U/L Alanine Aminotransferase (ALT/SGPT) 23 0-55 U/L Alkaline Phosphatase 76 40-136 U/L Troponin I < 0.30 < 0.30 <0.30 NG/ML Total Protein 7.1 6.4-8.2 GM/DL Albumin 4.3 3.2-4.5 GM/DL My Orders Orders - COTA,NORA DO Cbc With Automated Diff (07/27/22 10:48) Comprehensive Metabolic Panel (07/27/22 10:48) Troponin I Fs (07/27/22 10:48) Ekg Tracing (07/27/22 10:48) Fibrin Degradation Products (07/27/22 10:48) Chest 1 View Ap/Pa Only (07/27/22 10:48) Ketorolac Injection (Toradol Injection) (07/27/22 11:30) Fentanyl Inj (Sublimaze Injection) (07/27/22 11:30) Ondansetron Injection (Zofran Injectio (07/27/22 11:30) Ct Chest/Abdomen/Pelvis W (07/27/22 11:22) Iohexol Injection (Omnipaque 350 Mg/Ml 1 (07/27/22 11:45) Received Contrast (Hold Metformin- Contr (07/27/22 11:45) Sodium Chloride Flush (Catheter Flush Sy (07/27/22 11:45) Ns (Ivpb) (Sodium Chloride 0.9% Ivpb Bag (07/27/22 11:45) Troponin I Fs (07/27/22 13:21) Medications Given in ED Current Medications Medications Dose Ordered Sig/Brooks Route Start Time Stop Time Status Last Admin Dose Admin Fentanyl Citrate 50 mcg ONCE ONCE IVP 07/27/22 11:30 07/27/22 11:31 DC 07/27/22 11:28 50 MCG Iohexol 100 ml ONCE ONCE IV 07/27/22 11:45 07/27/22 11:46 DC 07/27/22 11:54 100 ML Ketorolac Tromethamine 30 mg ONCE ONCE IVP 07/27/22 11:30 07/27/22 11:31 DC 07/27/22 11:29 30 MG Ondansetron HCl 4 mg ONCE ONCE IVP 07/27/22 11:30 07/27/22 11:31 DC 07/27/22 11:28 4 MG Sodium Chloride 10 ml NEEDED PRN IV 07/27/22 11:45 07/27/22 11:55 10 ML Sodium Chloride 100 ml ONCE ONCE IV 07/27/22 11:45 07/27/22 11:46 DC 07/27/22 11:54 100 ML Vital Signs/I&O 07/27/22 10:51 Temp 35.8 Pulse 77 Resp 20 B/P (MAP) 182/93 (122) Pulse Ox 97 O2 Delivery Room Air Capillary Refill : Blood Pressure Mean: 122 Departure Communication (Admissions) Chest x-ray: No acute cardiopulmonary disease on preliminary ED review. CT chest/abdomen/pelvis: No acute cardiopulmonary disease per radiology report. Left upper quadrant pain/tenderness rating to left shoulder. Sammy is in lung bases, no other acute anatomical finding present per radiology report. Pain reproduces palpation and movement. Lab work is otherwise unrevealing. Pain addressed and improved. Etiology of patient's symptoms is unclear. Recommendations are watchful waiting supportive care with PCP follow-up. Return precautions reviewed. Patient verbalizes understanding agreement with discharge instructions prior to departure. Impression Primary Impression: Chest pain Additional Impression: Left flank pain Disposition: HOME, SELF-CARE Condition: Stable Departure-Patient Inst. Decision time for Depature: 14:08 Referrals: JAYA DIEHL MD (PCP) Primary Care Physician Patient Instructions: Chest Pain Add. Discharge Instructions: You were evaluated in the emergency department for chest pain. EKG lab and imaging studies were performed and are nondiagnostic. The cause of your symptoms has not been determined. Please go home and rest, take Tylenol as needed for pain. Avoid strenuous physical activity and heavy lifting. Follow- up with your PCP in 3 to 5 days for reevaluation. Return to the ED if new or worsening symptoms All discharge instructions reviewed with patient and/or family. Voiced understanding. NORA COTA DO Jul 27, 2022 11:22
[2022-07-27] MEDS ORDERED: fentaNYL INJ 100 MCG/2 ML AMP IVP ONE (11:30)
[2022-07-27] MEDS ORDERED: KETOROLAC 30 MG/ML VIAL IVP ONE (11:30)
[2022-07-27] MEDS ORDERED: ONDANSETRON 4 MG/2 ML (SDV) Z0FRAN IVP ONE (11:30)
[2022-07-27] MEDS ORDERED: HOLD METFORMIN - RECEIVED CONTRAST 20 ML VIAL IV SCH (11:45)
[2022-07-27] MEDS ORDERED: IOHEXOL 350 MG/ML 100 ML (OMNIPAQUE 350) VIAL IV ONE (11:45)
[2022-07-27] MEDS ORDERED: CATHETER FLUSH 10 ML SYR IV PRN (11:45)
[2022-07-27] MEDS ORDERED: NS 100 ML (IVPB) BAG IV ONE (11:45)
--- NOTE | 2022-07-27 12:36 | Diagnostic Imaging Report ---
PROCEDURE: CT chest, abdomen, and pelvis with contrast. TECHNIQUE: Multiple contiguous axial images were obtained through the chest, abdomen, and pelvis after the administration of intravenous contrast. Auto Exposure Controls were utilized during the CT exam to meet ALARA standards for radiation dose reduction. Date: July 27, 2022. Indication: 72-year-old male, left upper quadrant abdominal pain extending to the shoulder. Chest pain. Comparison: Chest radiograph July 27, 2022. Findings: There is a trace to small left pleural effusion. There are predominantly linear opacities in the left lower lobe and lingula likely reflecting atelectasis. There are mild linear opacities in the right lower lobe consistent with atelectasis. There is also mild dependent atelectasis in the right upper lobe. There is a pleural-based 5 mm left-sided pulmonary nodule on axial image 68. There is no pneumothorax. The more central airways are patent. The heart is not enlarged. There is no pericardial effusion. There are coronary artery calcifications. There are additional areas of atherosclerotic disease. There is a calcified right hilar lymph node likely reflecting sequela of prior granulomatous disease. There is no identified abnormally enlarged noncalcified mediastinal, hilar, or axillary lymph node meeting CT size criteria for adenopathy. The liver is unremarkable in size and contour. There is no identified liver lesion. The main, right, and left portal veins are patent. The gallbladder is unremarkable. There is no biliary ductal dilation. The main pancreatic duct is not abnormally dilated. Unremarkable appearance of the pancreatic parenchyma. The spleen is normal in size. The adrenal glands are unremarkable. There is a low-attenuation left renal lesion on axial image 78 which measures 4.5 cm in size. Internal attenuation is consistent with a benign cyst. There is a low-attenuation right renal lesion on axial image 87 which is compatible with a benign cyst measuring approximately 11 mm in size. The urinary collecting systems are not distended. There is no identified renal or ureteral stone. Urinary bladder is unremarkable. The intestinal tract is not distended. There is no evidence to suggest acute appendicitis. There is no free intraperitoneal air. There is no drainable fluid collection. There is no free fluid in the abdomen or pelvis. There is no identified abnormally enlarged lymph node in the abdomen or pelvis which meets CT size criteria for adenopathy. There are bilateral L5 pars interarticularis defects with grade 1 anterolisthesis of L5 on S1. There is no identified acute bony abnormality. Impression: 1. Trace to small left pleural effusion. 2. Mild atelectasis in the lungs bilaterally. 3. No identified acute abnormality in the abdomen or pelvis. 4. Incidental findings as above. Dictated by: Dictated on workstation # [id number]
[2022-07-27 14:18] VITALS: BP 126/74
== END 2022-07-27 14:15 | disposition home or self-care (01) ==
LOC: EDUNIT# 10:36 → ER FS 10:39
DX: R10.12 Left upper quadrant pain (principal); R07.89 Other chest pain; Z72.0 Tobacco use; Z28.310 Unvaccinated for COVID-19
CPT/HCPCS: 36415; 71045; 71260; 74177; 80053; 84484; 85025; 85379; 93005; 96374; 96375; Q9967

== ENCOUNTER → 2022-07-30 | Outpatient (CLI) | payer MEDICARE, OTHER ==
[~2022-07-30] MED LIST changes: +CATHETER FLUSH 10 ML SYR IVP PRN; +LORA10CA PO
[2022-07-30 09:22] VITALS: BP 170/98
--- NOTE | 2022-07-30 11:07 | Cardiology Stress Test Report ---
Stress Test Report Date of Procedure/Referring: Date of Procedure: Jul 30, 2022 PCP Jaya Hernandez MD Admitting Physician Admitting Physician: Attending Physician: Suze Lui Indications: HTN Baseline Heart Rate: 82 Baseline Blood Pressure: Blood Pressure Systolic: 170 Blood Pressure Diastolic: 98 Vital Signs Date Time Temp Pulse Resp B/P (MAP) Pulse Ox O2 Delivery O2 Flow Rate FiO2 07/30/22 09:22 73 170/98 (122) 98 Baseline Vital Signs Vital Signs Date Time Temp Pulse Resp B/P (MAP) Pulse Ox O2 Delivery O2 Flow Rate FiO2 07/30/22 09:22 73 170/98 (122) 98 Baseline EKG: Baseline EKG: NSR Summary: After explaining the procedure and details to the patient, he signed the consent and was brought to the stress nuclear laboratory. Patient exercised on standard Zachary protocol, EKG, heart rate and blood pressure were monitored continuously, resting and stress doses of radio tracer were injected, imaging was acquired and reviewed in the short axis, horizontal long axis and vertical long axis views Patient was able to exercise for a total of 82 minutes on Zachary protocol, METs 2.30 Maximum heart rate 185 Maximum blood pressure 247/135 Stress EKG, Minimal nondiagnostic changes Recovery EKG, Return to baseline TID: 1 SSS: 7 SDS: 2 EF: 42 Conclusion: 1. Poor exercise tolerance for 2 minutes and 30 seconds on standard Zachary protocol, 3.8 METS achieving over 100% of maximum expected heart rate 2. Severe hypertensive response to exercise with peak blood pressure 247/135 return to baseline during recovery 3. Multiple episodes of short runs of nonsustained ventricular tachycardia induced by exercise 4. Reversible ischemia involving the mid to apical anterior wall 5. Normal left ventricular size with diffuse left ventricular hypokinesia, ejection fraction 42% I visited with the patient, he was seen in the emergency room 3 days ago for an episode of chest pain, has been more symptomatic with exertion. Recommended cardiac catheterization possible PTCA Copy Copies To 1: JAYA HERNANDEZ MD, BASHAR J MD Jul 30, 2022 11:06
== END ==
LOC: CARD 08:15
PROVIDERS: ATTEND Physician Assistant
DX: I10 Essential (primary) hypertension (principal); I25.10 Atherosclerotic heart disease of native coronary artery without angina pectoris
CPT/HCPCS: 78452; 93017; A9502

== ENCOUNTER 2022-08-01 10:57 | Day surgery (SDC) | payer MEDICARE, OTHER ==
[2022-08-01] VITALS (9 sets, daily range): BP systolic 117–164; BP diastolic 68–98
[~2022-08-01] VITALS: Ht 177.8 cm; Wt 106.1 kg
[~2022-08-01 10:57] MED LIST changes: -CATHETER FLUSH 10 ML SYR IVP PRN; -LORA10CA PO
[2022-08-01] MEDS ORDERED: NS IV 1000 ML 1,000 ML IV SCH ×2 (11:30→13:45)
[2022-08-01] MEDS ORDERED: HEParin 1000 UNIT/ML (10ML VIAL) FOR BOLUS ONE (11:30)
[2022-08-01] MEDS ORDERED: NITRO DRIP 25000 MCG/D5W 250 ML IV ONE (11:30)
[2022-08-01] MEDS ORDERED: VERAPAMIL 5 MG/2 ML (CALAN) VIAL IV ONE (11:30)
[2022-08-01] MEDS ORDERED: fentaNYL INJ 100 MCG/2 ML AMP ONE (11:30)
[2022-08-01] MEDS ORDERED: MIDAZOLAM 5 MG/5 ML (VERSED) VIAL ONE ×2 (11:30→12:55)
[2022-08-01] MEDS ORDERED: LIDOCAINE 1% INJ 30 ML (XYLOCAINE) VIAL ONE (11:31)
[2022-08-01] MEDS ORDERED: NS IV 1000 ML 1,000 ML ONE (11:33)
[2022-08-01] MEDS ORDERED: HEParin (CATH LAB) 2,000 ML IV ONE (11:33)
--- NOTE | 2022-08-01 12:06 | Diagnostic Imaging Report ---
INDICATION: Chest pain. EXAMINATION: Portable chest at 11:40 AM. FINDINGS: The heart size and pulmonary vascularity are normal. The lungs are clear. There are no effusions or pneumothoraces. IMPRESSION: No acute abnormalities in the chest. Dictated by: Dictated on workstation # [id number]
[2022-08-01] MEDS ORDERED: LORA10CA PO (12:25)
[2022-08-01] MEDS ORDERED: MIDAZOLAM 2 MG/2 ML (VERSED) VIAL ONE (12:30)
[2022-08-01 12:35] LABS: HEMATOCRIT 48 % (40-54); HEMOGLOBIN 15.5 g/dL (13.3-17.7); MEAN CORPUSCULAR HEMOGLOBIN 31 pg (25-34); MEAN CORPUSCULAR HGB CONC 33 g/dL (32-36); MEAN CORPUSCULAR VOLUME 95 fL (80-99); MEAN PLATELET VOLUME 9.7 fL (9.0-12.2); PLATELET COUNT 299 10^3/uL (130-400); WHITE BLOOD COUNT 8.4 10^3/uL (4.3-11.0)
[2022-08-01 12:36] LABS: BILIRUBIN,URINE NEGATIVE (NEGATIVE); CLARITY,URINE CLEAR; COLOR,URINE YELLOW; GLUCOSE, URINE (UA) TRACE (NEGATIVE); KETONES,URINE NEGATIVE (NEGATIVE); LEUKOCYTE ESTERASE ,URINE NEGATIVE (NEGATIVE); NITRITE,URINE NEGATIVE (NEGATIVE); PH,URINE 6.5 (5-9); PROTEIN,URINE NEGATIVE (NEGATIVE)
--- NOTE | 2022-08-01 12:48 | Cardiac Procedure Note-CS/ASA ---
Pre-Procedure Note Pre-Op Procedure Note Date of Available H&P: Aug 01, 2022 Date H&P Reviewed: Aug 01, 2022 Time H&P Reviewed: 12:48 History & Physical: H&P Reviewed, Patient Examed, No changes noted Pre-Operative Diagnosis: Coronary artery disease Conscious Sedation Pre-Proced Time 12:48 ASA Score 3 For ASA 3 and 4: Consider anesthesia and medical clearance. Also, for patients with a history of failed moderate sedation consider anesthesia. Airway Lungs Heart ASA score ASA 1: a normal healthy patient ASA 2: a patient with a mild systemic disease (mid diabetes, controlled hypertension, obesity ASA 3: a patient with a severe systemic disease that limits activity (angina, COPD, prior Myocardial infarction) ASA 4: a patient with an incapacitating disease that is a constant threat to life (CHF, renal failure) ASA 5: a moribund patient not expected to survive 24 hrs. (ruptured aneurysm) ASA 6: a declared brain- patient whose organs are being harvested. For emergent operations, add the letter E after the classification Mallampati Classification Grade 3 Sedation Plan Analgesia, Amnesia, Plan communicated to team members, Discussed options with patient/fam, Discussed risks with patient/fam The patient is an appropriate candidate to undergo the planned procedure, sedation, and anesthesia. The patient immediately re-assessed prior to indication. FIONA SEALS MD Aug 01, 2022 12:48
[2022-08-01 12:52] LABS: INR 0.9 (0.8-1.4)
[2022-08-01 12:57] LABS: BACTERIA,URINE NEGATIVE /HPF; WBC,URINE RARE /HPF
[2022-08-01 12:58] LABS: SQUAMOUS EPITHELIAL CELL,UR RARE /HPF
[2022-08-01 12:59] LABS: ALBUMIN 4.1 GM/DL (3.2-4.5); BILIRUBIN,TOTAL 0.4 MG/DL (0.1-1.0); CALCIUM 9.6 MG/DL (8.5-10.1); CREATININE SERUM 0.96 MG/DL (0.60-1.30); POTASSIUM 4.3 MMOL/L (3.6-5.0)
--- NOTE | 2022-08-01 13:37 | Discharge Inst-Post CATH ---
Discharge Inst-CATH/EP Problems Reviewed?: Yes Post Cardiac Cath/EP D/C Inst Follow Up/Plan Appointment with Dr. Christian's office in 2 to 4 weeks <b>CARDIAC CATH/EP PROCEDURE DISCHARGE INSTRUCTIONS</b> ACTIVITY * Go Home directly and rest. * Limit activity of the leg (or wrist if it was used) for 7 days including aer obics, swimming, jogging, bicycling, etc. * Restrict stair-climbing for 7 days if possible, if not, climb up with your non-cath leg, then bring together on the same step. * Avoid lifting, pushing, pulling or excessive movement of the affected extremi ty for 7 days. * Customary sexual activity may be resumed after 2 days-use caution not to use a position that strains or causes pain to the affected extremity. * No driving for 24 hours. * NO SMOKING. * Avoid straining for bowel movements for 7 days. * Gentle walking on level ground is allowed. * Returning to work will depend on the type of procedure and the results. Your doctor will discuss this with you. CALL YOUR DOCTOR FOR ANY OF THE FOLLOWING: *If bleeding from the puncture site occurs- Apply gentle pressure to site with clean cloth and call your doctor or EMS. * If a knot or lump forms under the skin, increases in size, or causes pain. * If bruising appears to be worsening or moving further down your leg instead of disappearing. * Temperature above 101 F. CARE OF YOUR GROIN INCISION; * Bruising or purple discoloration of the skin near the puncture site is common. * You may shower only, no bathtub bathing for 5 days. Be careful to avoid slipping as your leg may feel stiff. * If a closure device was used on your femoral artery, please see the attached guide regarding care of the device and your leg. * Leave dressing on FOR 24 hours. CARE OF YOUR WRIST INCISION; * Bruising or purple discoloration of the skin near the puncture site is common. * You may shower. * DO NOT submerge wrist. * Leave dressing on FOR 24 hours. FIONA CHRISTIAN MD Aug 01, 2022 13:37
--- NOTE | 2022-08-01 13:40 | Cardiac Cath Report ---
Cardiac Cath Report Physician (s)/Travel Registered Nurse Icu (s) Physician FIONA SEALS MD Pre-Procedure Diagnosis Pre-Procedure Diagnosis: Coronary artery disease Post-Procedure Note Procedure Start Date: Aug 01, 2022 Name of Procedure: Left heart catheterization Findings/Procedure Note PROCEDURE NOTE: 72-year-old gentleman with history of coronary artery disease multivessel intervention, had an abnormal stress test, scheduled for cardiac catheterization possible PTCA. After explaining the procedure to the patient, all pros and cons were explained, all questions were answered. The patient signed the consent and then he was placed on the cardiac catheterization laboratory. Groin was prepped SL fashion local anesthesia was used. Sheath placed in the right radial artery, [place] catheter was advanced to the left ventricle, pressure was measured, pullback LV to aorta was done, engage the right and left coronary system, multiple views were obtained. At the end of the procedure the sheath was removed. Vascular band was used FINDINGS: Hemodynamics LV 105/12, end-diastolic pressure of 12 Aorta 90/65 mean of 81 ANATOMY: Left Main is free of obstructive disease Left Anterior Descending has a patent stent proximally, 40 to 50% stenosis in the mid LAD tortuous artery nonobstructive disease Left Circumflex is large dominant artery with mild disease nonobstructive disease Right Coronary Artery is nondominant artery with patent stent proximally. LV Gram was not done, pressure was measured CONCLUSION: 1. Patent stent in the proximal LAD with tortuous artery and 40 to 50% stenosis at the mid LAD. Nonobstructive disease, patent stent in the proximal nondominant right coronary artery with mild disease in the dominant circumflex artery 2. Normal left ventricular end-diastolic pressure DISCUSSION AND RECOMMENDATION: Abnormal stress stress test is probably due to his recent myocardial infarction, small vessel disease. Medical therapy is recommended Anesthesia Type: Conscious Sedation Estimated blood loss (mL): 15 ml Contrast Amount: 36 ml Total Radiation Dose: 277 mGy Post-Procedure Diagnosis Post-operative diagnosis: Coronary artery disease Hypertension Hyperlipidemia Chest pain FIONA SEALS MD Aug 01, 2022 13:40
== END 2022-08-01 16:32 ==
LOC: CATH 10:57 → ICU 14:10 → CATH 16:32
PROVIDERS: ATTEND Internal Medicine Cardiovascular Disease
DX: I25.10 Atherosclerotic heart disease of native coronary artery without angina pectoris (principal); I10 Essential (primary) hypertension; E78.5 Hyperlipidemia, unspecified
CPT/HCPCS: 71045; 80053; 80061; 81000; 85027; 85610; 85730; 87081; 93005; 93458; C1894; 36415

== ENCOUNTER 2022-08-08 06:44 | Outpatient (CLI) | payer MEDICARE, OTHER ==
[~2022-08-08] VITALS: Ht 177.8 cm; Wt 108.6 kg
[~2022-08-08 06:44] MED LIST changes: +LORA10CA PO
[2022-08-08] MEDS ORDERED: ATOR80TA76 PO (11:02)
[2022-08-08] MEDS ORDERED: ASPI-999 PO (11:02)
[2022-08-08] MEDS ORDERED: MTP25TSR PO (11:02)
== END 2022-08-08 11:05 | disposition home or self-care (01) ==
LOC: PREOP 06:44
PROVIDERS: ATTEND Surgery
DX: Z01.818 Encounter for other preprocedural examination (principal)

== ENCOUNTER 2022-08-20 08:57 | Day surgery (SDC) | payer MEDICARE, OTHER ==
[~2022-08-20] VITALS: Ht 177.8 cm; Wt 108.6 kg
[2022-08-20] VITALS (7 sets, daily range): BP systolic 129–187; BP diastolic 75–93
[~2022-08-20 08:57] MED LIST changes: +ASPI-999 PO
[2022-08-20] MEDS ORDERED: LACTATED RINGERS 1,000 ML IV STA (08:59)
[2022-08-20] MEDS ORDERED: HURRICAINE EXT TUBE (BENZOCAINE) XX PRN (09:00)
--- NOTE | 2022-08-20 09:26 | Progress Note-Pre Operative ---
Pre-Operative Progress Note Date of Available H&P: Aug 07, 2022 Date H&P Reviewed: Aug 20, 2022 Time H&P Reviewed: 09:24 History & Physical: H&P Reviewed, Patient Examed, No changes noted Pre-Operative Diagnosis: Dysphagia, Chronic Gastritis BLAKE GRANADOS DO Aug 20, 2022 09:26
[2022-08-20] MEDS ORDERED: proPOfol 200 MG/20 ML (DIPRIVAN) VIAL IV ONE (09:30)
[2022-08-20] MEDS ORDERED: PROPOFOL INJECTION 50 ML IV ONE (09:31)
--- NOTE | 2022-08-20 10:56 | Progress Note-Post Operative ---
Post-Operative Progess Note Surgeon (s)/Trace Clerk (s) Surgeon BLAKE GRANADOS DO Trace Clerk: none Pre-Operative Diagnosis Dysphagia, Chronic Gastritis Post-Operative Diagnosis Duodenal mass gastritis Hiatal hernia esophagitis Gastric polyps Procedure & Operative Findings Date of Procedure 08/20/22 Procedure Performed/Findings EGD with hot biopsy removal of Gastric Polyp EGD with bx PROCEDURE NOTE: After informed consent was obtained, the patient was brought to the endoscopy suite, placed in bed in left lateral decubitus position. He was administered IV sedation by the [employer] who then monitored vitals the entire time, heart rate, blood pressure and pulse ox and the scope was inserted down the mouth through the esophagus into the stomach. On the way down, noted some mild esophagitis, took a picture, pushed into the stomach, pushed past the antrum into the duodenum. In the duodenum found what looked like a mass in the duodenal bulb and biopsied it. Pulled back, noted some gastritis and did a biopsy of the antrum. Then I noted a polyp; did not look like typical fundic gland polyp and I elected to remove it with a hot biopsy. Next, I retroflexed the scope, saw a small hiatal hernia and took a picture of this. I then noted some more polyps (which looked like fundic gland polyp) and removed another polyp. I also did a biopsy of the body of the stomach. Finally, pulled the scope into the GE junction, took another picture of the hiatal hernia and then did a biopsy of the GE junction. Pushed the scope back into the stomach, suctioned all the air out of the stomach. At this point pulled the scope up the esophagus and out the mouth. The patient tolerated the procedure, and he recovered in endoscopy suite. Anesthesia Type IV sedation by the [employer] Estimated Blood Loss Estimated blood loss (mL): scant Specimens/Packing Specimens Removed duodenal bx antral bx body of stomach bx GE jxn bx Gastric polyp x 2 BLAKE GRANADOS DO Aug 20, 2022 10:56
--- NOTE | 2022-08-20 10:58 | Endoscopy Discharge Instruct ---
Endo Procedure/Findings Findings 1.: Polyp 2.: Hiatal Hernia 3.: Gastritis 4.: Other Findings (duodenal mass) Discharge Instructions - Activity: You might feel a little sleepy until tomorrow. This is due to the medicine you received to relax you. Until tomorrow, you should: NOT drive a car, operate machinery or power tools. NOT drink any alcoholic beverages. NOT make any important decisions or sign importortant papers. Do not return to work until tomorrow, unless otherwise instructed. Resume previous activities tomorrow. Diet: Start by taking liquids. If you tolerate liquids, advance to solid food. 1.: EGD in 1 year Notify Physician - If you experience excessive bleeding, unusual abdominal pain, fever, or chest pain, contact your doctor immediately. BLAKE GRANADOS DO Aug 20, 2022 10:58
[2022-08-20] MEDS ORDERED: RT-ALBUTEROL SULF 2.5 MG/3 ML PRE-MIX VIAL INH ONE (11:30)
--- NOTE | 2022-08-20 12:46 | Anesthesia-General Post-Op ---
MAC Patient Condition Mental Status/LOC: Same as Preop Cardiovascular: Satisfactory Nausea/Vomiting: Absent Respiratory: Satisfactory Pain: Controlled Complications: Absent Post Op Complications Complications None Follow Up Care/Instructions Patient Instructions None needed. Anesthesiology Discharge Order Discharge Order Patient is doing well, no complaints, stable vital signs, no apparent adverse anesthesia problems. No complications reported per nursing. BRITTANY ROBERTSON CRNA Aug 20, 2022 12:46
== END 2022-08-20 12:05 | disposition home or self-care (01) ==
LOC: ENDO 08:57
PROVIDERS: ATTEND Surgery
DX: K29.50 Unspecified chronic gastritis without bleeding (principal); K21.00 Gastro-esophageal reflux disease with esophagitis, without bleeding; K44.9 Diaphragmatic hernia without obstruction or gangrene; K31.7 Polyp of stomach and duodenum; K29.80 Duodenitis without bleeding; E66.01 Morbid (severe) obesity due to excess calories; Z68.34 Body mass index [BMI] 34.0-34.9, adult; Z98.61 Coronary angioplasty status; Z85.038 Personal history of other malignant neoplasm of large intestine; Z28.310 Unvaccinated for COVID-19; Z85.828 Personal history of other malignant neoplasm of skin
CPT/HCPCS: 88305; 94640

== ENCOUNTER 2023-01-18 16:22 | Emergency (ER) | payer MEDICARE, OTHER ==
[~2023-01-18] VITALS: Ht 178 cm; Wt 104.0 kg
--- NOTE | 2023-01-18 16:54 | ED Respiratory ---
General Chief Complaint: Respiratory Problems Stated Complaint: SOA LEFT SIDE PAIN Nursing Triage Note: PT AMB TO RM 5 WITH C/O L SIDE RIB PAIN AND TROUBLE BREATHING. PT STATES IT FEELS LIKE HIS RIBS ARE BROKEN AND IT IS HARD TO MOVE Source: patient Exam Limitations: no limitations (IRINA CHRISTIANSON MD) History of Present Illness Date Seen by Provider: Jan 18, 2023 Time Seen by Provider: 16:30 Initial Comments Patient is a 72-year-old male who presents to the emergency room with a chief complaint of left lower rib pain, shortness of breath. Patient states his symptoms started yesterday. He states whenever he exerts himself he becomes increasingly more short of breath and develops this pain. He tells me that about 6 months ago he had a stress test and then subsequently had a heart cath which she was told was clean. He does have a history of cardiac stent placement x2 approximately 2 years ago. He is not a diabetic. He does take medications for hypertension. No history of blood clot. He denies fevers, chills, productive cough. He states movement causes the sharp pain in his left anterior lower chest as well as laying on the left side. No abdominal pain, nausea, vomiting or diarrhea. He has not however had a smoking history. He does not need to use inhalers. He was raised by smokers. Timing/Duration: yesterday Severity: severe ("8 or 9" at its worst. no pain when still. mostly SOB) Modifying Factors: Improves With Rest Associated Symptoms: chest pain/soreness (leftanterior lwer chest), shortness of breath (IRINA CHRISTIANSON MD) Allergies and Home Medications Allergies Coded Allergies: No Known Drug Allergies (Unverified , 07/27/19) Patient Home Medication List Home Medication List Reviewed: Yes (IRINA CHRISTIANSON MD) Atorvastatin Calcium (Atorvastatin Calcium) 80 Mg Tablet, 80 MG PO HS, (Reported) Entered as Reported by: VILMA DICKENS on 08/08/22 110 Azithromycin (Azithromycin) 250 Mg Tablet, 250 MG PO UD Prescribed by: CHERI WESTON on 01/18/231906 Cefdinir (Cefdinir) 300 Mg Capsule, 300 MG PO BID Prescribed by: CHERI WESTON on 3/24/23 1907 Lisinopril (Lisinopril) 10 Mg Tablet, 10 MG PO DAILY, (Reported) Entered as Reported by: FELICIA BLANC on 04/30/21 1838 Loratadine (Claritin) 10 Mg Capsule, 10 MG PO DAILY, (Reported) Entered as Reported by: Shayy Heaton on 08/01/22 1225 Metoprolol Succinate (Metoprolol Succinate) 25 Mg Tab.er.24h, 25 MG PO DAILY, (Reported) Entered as Reported by: VILMA DICKENS on 08/08/22 1102 Pantoprazole Sodium (Pantoprazole Sodium) 40 Mg Tablet.dr, 40 MG PO DAILY, (Reported) Entered as Reported by: VILMA DICKENS on 07/27/19 1212 Prednisone (Prednisone) 20 Mg Tab, 20 MG PO DAILY Prescribed by: CHERI WESTON on 01/18/232013 Review of Systems Review of Systems Constitutional: see HPI EENTM: no symptoms reported Respiratory: short of breath Cardiovascular: chest pain (left lower ribs) Gastrointestinal: no symptoms reported Genitourinary: no symptoms reported Musculoskeletal: no symptoms reported Skin: no symptoms reported (IRINA CHRISTIANSON MD) All Other Systems Reviewed Negative Unless Noted: Yes (IRINA CHRISTIANSON MD) Past Jcxlkoi-Xwzjnh-Rzlddj Hx Patient Social History Tobacco Use?: No Use of E-Cig and/or Vaping dev: No Substance use?: No Alcohol Use?: No Pt feels they are or have been: No (IRINA CHRISTIANSON MD) Immunizations Up To Date Tetanus Booster (TDap): Unknown Influenza Vaccine Up-to-Date: No; Not Current First/Initial COVID19 Vaccinat: n/a Second COVID19 Vaccination Julio: n/a Third COVID19 Vaccination Date: n/a (IRINA CHRISTIANSON MD) Seasonal Allergies Seasonal Allergies: Yes (IRINA CHRISTIANSON MD) Past Medical History Surgery/Hospitalization HX: STENTS HTN, HLD, GERD Surgeries: Yes (LESION REMOVED FROM ARM) Coronary Stent Respiratory: No Cardiac: Yes (stents x2) Heart Attack, High Cholesterol, Hypertension Neurological: No Genitourinary: No Gastrointestinal: Yes Gastroesophageal Reflux Musculoskeletal: No Endocrine: No HEENT: No Cancer: Yes Melanoma What Type of Treatment Did You: Surgical Intervention Psychosocial: No Integumentary: No Blood Disorders: No (IRINA CHRISTIANSON MD) Physical Exam Vital Signs - First Documented 01/18/23 01/18/23 01/18/23 16:30 16:47 19:09 Pulse 77 Resp 18 B/P (MAP) 180/90 (120) Pulse Ox 98 O2 Delivery Room Air O2 Flow Rate 0 FiO2 21 (CHERI NUNO MD) Capillary Refill : (IRINA CHRISTIANSON MD) Height: '" Weight: lbs. oz. kg; 32.00 BMI Method: General Appearance: WD/WN, no apparent distress Eyes: Bilateral Eye Normal Inspection, Bilateral Eye PERRL, Bilateral Eye EOMI HEENT: PERRL/EOMI Neck: supple, normal inspection Respiratory: chest non-tender, no respiratory distress, no accessory muscle use, crackles (questionable rub heard left lower chest posteriorly; no wheeze; patient with limited inspiration due to pain on left) Cardiovascular: regular rate, rhythm Gastrointestinal: normal bowel sounds, non tender, soft Extremities: normal range of motion, non-tender, normal inspection, no pedal edema Neurologic/Psychiatric: alert, normal mood/affect, oriented x 3 Skin: normal color, warm/dry (IRINA CHRISTIANSON MD) Progress/Results/Core Measures Suspected Sepsis SIRS Temperature: Pulse: 77 Respiratory Rate: 18 Laboratory Tests 01/18/23 16:35: White Blood Count 9.5 Blood Pressure 180 /90 Mean: 120 Laboratory Tests 01/18/23 16:35: Creatinine 0.92, INR Comment 1.0, Platelet Count 300, Total Bilirubin 0.5 (IRINA CHRISTIANSON MD) Results/Orders Lab Results Laboratory Tests Test 01/18/23 16:35 01/18/23 18:50 Range/Units White Blood Count 9.5 4.3-11.0 10^3/uL Red Blood Count 5.50 4.30-5.52 10^6/uL Hemoglobin 16.4 13.3-17.7 g/dL Hematocrit 50 40-54 % Mean Corpuscular Volume 92 80-99 fL Mean Corpuscular Hemoglobin 30 25-34 pg Mean Corpuscular Hemoglobin Concent 33 32-36 g/dL Red Cell Distribution Width 14.1 10.0-14.5 % Platelet Count 300 130-400 10^3/uL Mean Platelet Volume 9.6 9.0-12.2 fL Immature Granulocyte % (Auto) 0 % Neutrophils (%) (Auto) 70 42-75 % Lymphocytes (%) (Auto) 16 12-44 % Monocytes (%) (Auto) 11 0-12 % Eosinophils (%) (Auto) 2 0-10 % Basophils (%) (Auto) 0 0-10 % Neutrophils # (Auto) 6.6 1.8-7.8 10^3/uL Lymphocytes # (Auto) 1.5 1.0-4.0 10^3/uL Monocytes # (Auto) 1.1 H 0.0-1.0 10^3/uL Eosinophils # (Auto) 0.2 0.0-0.3 10^3/uL Basophils # (Auto) 0.0 0.0-0.1 10^3/uL Immature Granulocyte # (Auto) 0.0 0.0-0.1 10^3/uL Erythrocyte Sedimentation Rate 5 0-30 MM/HR Prothrombin Time 13.4 12.2-14.7 SEC INR Comment 1.0 0.8-1.4 Activated Partial Thromboplast Time 39 H 24-35 SEC D-Dimer 0.33 0.00-0.49 UG/ML Sodium Level 137 135-145 MMOL/L Potassium Level 4.4 3.6-5.0 MMOL/L Chloride Level 105 98-107 MMOL/L Carbon Dioxide Level 23 21-32 MMOL/L Anion Gap 9 5-14 MMOL/L Blood Urea Nitrogen 14 7-18 MG/DL Creatinine 0.92 0.60-1.30 MG/DL Estimat Glomerular Filtration Rate 88 BUN/Creatinine Ratio 15 Glucose Level 106 H 70-105 MG/DL Calcium Level 9.6 8.5-10.1 MG/DL Corrected Calcium 9.4 8.5-10.1 MG/DL Magnesium Level 2.1 1.6-2.4 MG/DL Total Bilirubin 0.5 0.1-1.0 MG/DL Aspartate Amino Transf (AST/SGOT) 15 5-34 U/L Alanine Aminotransferase (ALT/SGPT) 23 0-55 U/L Alkaline Phosphatase 65 40-136 U/L Troponin I < 0.028 <0.028 NG/ML C-Reactive Protein High Sensitivity 2.75 H 0.00-0.50 MG/DL B-Type Natriuretic Peptide 42.3 <100.0 PG/ML Total Protein 7.4 6.4-8.2 GM/DL Albumin 4.2 3.2-4.5 GM/DL Influenza Type A (RT-PCR) Not Detected Not Detecte Influenza Type B (RT-PCR) Not Detected Not Detecte SARS-CoV-2 RNA (RT-PCR) Not Detected Not Detecte (CHERI NUNO MD) My Orders Orders - CHERI NUNO MD Hs C Reactive Protein (01/18/23 18:25) Erythrocyte Sedimentation Rate (01/18/23 18:31) Covid 19 Inhouse Test (01/18/23 18:50) Influenza A And B By Pcr (01/18/23 18:50) Ketorolac Injection (Toradol Injection) (01/18/23 19:00) Albuterol/Ipra Inhalation Soln (Duoneb I (01/18/23 19:00) Svn Small Volume Nebulizer (01/18/23 18:50) Ceftriaxone 1 Gm Pre-Mix (Rocephin 1 Gm (01/18/23 18:50) Bnp Rebecca (01/18/23 19:07) Albuterol Inhaler (Albuterol) (01/18/23 20:09) (CHERI NUNO MD) Medications Given in ED Current Medications Medications Dose Ordered Sig/Brooks Route Start Time Stop Time Status Last Admin Dose Admin Albuterol/ Ipratropium 3 ml ONCE ONCE INH 01/18/23 19:00 01/18/23 19:01 DC 01/18/23 19:09 3 ML Iohexol 100 ml ONCE ONCE IV 01/18/23 17:45 01/18/23 17:46 DC 01/18/23 18:00 74 ML Ketorolac Tromethamine 30 mg ONCE ONCE IVP 01/18/23 19:00 01/18/23 19:01 DC 01/18/23 18:59 30 MG Sodium Chloride 100 ml ONCE ONCE IV 01/18/23 17:45 01/18/23 17:46 DC 01/18/23 18:00 80 ML (CHERI NUNO MD) Vital Signs/I&O 01/18/23 01/18/23 01/18/23 01/18/23 16:30 16:47 19:09 20:24 Pulse 77 69 Resp 18 23 B/P (MAP) 180/90 (120) 152/90 Pulse Ox 98 94 O2 Delivery Room Air Room Air Room Air O2 Flow Rate 0 0 0 FiO2 21 (CHERI NUNO MD) Vital Signs/I&O Capillary Refill : (IRINA CHRISTIANSON MD) Blood Pressure Mean: 120 Progress Note #1: Time: 18:55 Progress Note Care of this patient was assumed from Dr. Christianson at shift change. CT chest with contrast was pending at that time. I reviewed that CT scan and found pleural thickening and/or effusion in the left lower chest with some atelectasis present. CT report was also reviewed. Radiologist interpretation indicated s mall effusion with atelectasis. No mass or lymphadenopathy was appreciated by my interpretation or the radiologist interpretation. I have since been in to reevaluate the patient and obtain further history. Patient has had pain on the left side in the abdomen and chest intermittently for about a year. Presently he has the most pain when he exerts himself or takes deep breaths. Additionally he notes recent increase in dyspnea with exertion that is not necessarily associated with the pain. On auscultation patient has decreased air movement and faint crackles in the left lower chest. He also has faint wheezing with forced expiration. It is apparent with forced expiration that he has significantly decreased air movement. It is uncertain how much of this is due to bronchoconstriction versus splinting from pain. We are going to treat his pain with Toradol 30 mg IV. He is no longer taking Plavix so should be able to tolerate NSAIDs without problem. We are going to give him a DuoNeb treatment as well to determine if that improves his airflow and if bronchodilators will be a helpful treatment for him. Additionally, he describes some recent cold symptoms. We will obtain the flu and COVID swabs to determine if 1 of these acute viral illnesses could explain his recent increase shortness of breath and bronchospasm. Inflammatory markers including CRP and ESR are pending. Finally, we are presumptively going to treat his increased pleural effusion as a pneumonia. Rocephin will be administered in the ER. He will be prescribed cefdinir and azithromycin on an outpatient basis. His describes an episode more than 5 years ago in which he had a pneumonia causing pleural effusion that required thoracentesis by Dr. Garcia (surgeon) in [place]. Ultimately, I will treat with antibiotics, NSAIDs for pain, and recommend referral to a final inspector and tester to monitor this effusion and evaluated further. Patient did have a heart cath last July, and that report was reviewed. He did have noncritical stenosis, and no interventions were performed at that time. We have also noted that patient has been hypertensive since arrival. This may be secondary to pain, so hopefully Toradol treatment will reduce his blood pressure. I have added a BNP to evaluate for heart failure as well, although there is no evidence of heart failure on his imaging. Patient reports being compliant with his blood pressure medications. Progress Note #2: Time: 20:11 Progress Note Additional labs were reviewed. CRP and ESR demonstrated no significant elevation to suggest major inflammatory response. BNP was normal suggesting no heart failure component. Influenza and COVID-19 swabs were negative. Patient was reexamined and found to have a little increase in air movement but still some tight wheezing and decreased air movement. He is being prescribed prednisone to help with this as well as an albuterol inhaler with spacer. It definitely appears that bronchospasm and decreased air movement is a component of his symptoms. Hopefully this will improve with bronchodilator and prednisone. Blood pressure did improve after treatment of pain. Blood pressure was 152/90. No adjustments were made in his blood pressure management with this improvement. (CHERI NUNO MD) ECG Initial ECG Impression Date: Jan 18, 2023 Initial ECG Impression Time: 16:49 Initial ECG Rate: 73 Initial ECG Rhythm: Normal Sinus Initial ECG Intervals AK 161 QRS 76 QTc 426 Comment Q waves V1, V2; no ST segment change; normal intervals (IRINA CHRISTIANSON MD) Diagnostic Imaging Diagonstic Imaging: Xray Plain Films/CT/US/NM/MRI: chest Comments [facility] [place] NAME: [facility] REC#: [id number] PT STATUS: REG ER : 1950 PHYSICIAN: IRINA CHRISTIANSON MD ADMIT DATE: 01/18/23/ER Signed Date of Exam:01/18/23 CHEST 1 VIEW, AP/PA ONLY EXAMINATION: Chest 1 view HISTORY: Chest pain COMPARISON: None available. FINDINGS: Heart size and pulmonary vasculature are normal. There are mild opacities within the left lung base. There may be small left pleural effusion. No pneumothorax. The osseous structures are intact. IMPRESSION: 1. Small left pleural effusion with adjacent atelectasis or consolidation. Dictated by: Dictated on workstation # [id number] Dict: 01/18/231704 Trans: 01/18/231708 AS6 [id number] Interpreted by: IGOR SANCHEZ DO Electronically signed by: IGOR SANCHEZ DO 01/18/231708 (IRINA CHRISTIANSON MD) Diagonstic Imaging: CT Plain Films/CT/US/NM/MRI: chest Comments CT chest viewed by me and radiologist's report was reviewed. See report below: NAME: [facility] REC#: [id number] PT STATUS: REG ER : 1950 PHYSICIAN: IRINA CHRISTIANSON MD ADMIT DATE: 01/18/23/ER Signed Date of Exam:01/18/23 CT CHEST W EXAMINATION: CT chest with intravenous contrast. TECHNIQUE: Multiple contiguous axial images were obtained through the chest after the uneventful administration of intravenous contrast. All CT scans use one or more of the following dose optimizing techniques: automated exposure control, MA and/or KvP adjustment based on patient size and exam type or iterative reconstruction. HISTORY: SOB; left sided chest pain; effusion COMPARISON: 07/27/2022 FINDINGS: Thyroid: The thyroid is normal. Mediastinum: Heart size is normal without significant pericardial effusion. Calcifications of the aorta and coronary vessels. Thoracic aorta is normal in caliber. No suspicious lymphadenopathy. Lungs and airways: There is a small left pleural effusion with left basilar atelectasis. No focal consolidation or pneumothorax. The airways are normal. Upper abdomen: The subphrenic structures are normal. Musculoskeletal: No suspicious osseous lesion or compression fracture. IMPRESSION: 1. Small left pleural effusion with left basilar atelectasis. 2. No other acute abnormality in the chest. Dictated by: Dictated on workstation # [id number] Dict: 01/18/231808 Trans: 01/18/231816 [facility] [id number] Interpreted by: IGOR SANCHEZ DO Electronically signed by: IGOR SANCHEZ DO 01/18/231816 (CHERI NUNO MD) Departure Impression Primary Impression: Pleuritic chest pain Additional Impressions: Dyspnea on exertion Pleural effusion History of coronary artery disease Bronchospasm HTN (hypertension) Qualified Codes: I10 - Essential (primary) hypertension Disposition: HOME, SELF-CARE Condition: Improved Departure-Patient Inst. Decision time for Depature: 19:03 (CHERI NUNO MD) Referrals: JAYA DIEHL MD (PCP/Family) Primary Care Physician Patient Instructions: Pleuritic Chest Pain Add. Discharge Instructions: Your COVID-19 and influenza swabs were negative. The exact causes of your chest pain and abnormal CT findings are uncertain at this time. Infection with pneumonia may be a contributing factor. Complete your antibiotics as prescribed. For your pain you may take ibuprofen up to 600 mg every 6 hours as needed for pain. Add Tylenol (acetaminophen) up to 1000 mg every 6 hours as needed for additional pain relief. Take ibuprofen with food or milk to avoid stomach upset. Stop the ibuprofen if it is causing stomach pain, and notify your doctor. Return to care promptly if you have escalating pain that is not controlled by these medications. For wheezing and shortness of breath use your inhaler with a spacer with 1 to 4 puffs every 4 hours as needed. If you are requiring more than 4 puffs in a 4- hour period of time, please return to care for further evaluation. You have also been prescribed prednisone to help with the wheezing. This is a steroid medication. Take it early in the day to avoid sleep disturbance. Take with food or milk to avoid stomach upset. Drink plenty of clear liquids to stay well-hydrated. Please follow-up with your primary care provider and Dr. Christian as soon as possible. Call tomorrow to make appointments. Specifically, you should discuss your shortness of breath with exertion with Dr. Christian. You should also discuss a referral to a final inspector and tester with your primary care provider. Return to the emergency room if you have worsening symptoms despite following these instructions or if you develop new symptoms such as fever. All discharge instructions reviewed with patient and/or family. Voiced understanding. Scripts Prednisone (Prednisone) 20 Mg Tab 20 MG PO DAILY, #4 TAB 0 Refills Prov: CHERI NUNO MD 01/18/23 Cefdinir (Cefdinir) 300 Mg Capsule 300 MG PO BID, #20 CAP 0 Refills Prov: CHERI NUNO MD 01/18/23 Azithromycin (Azithromycin) 250 Mg Tablet 250 MG PO UD, #6 TAB TAKE 2 TABLETS ON DAY ONE THEN TAKE 1 TABLET DAILY FOR FOUR MORE DAYS Prov: CHERI NUNO MD 01/18/23 Copy Copies To 1: FIONA CHRISTIAN MD Copies To 2: JAYA DIEHL MD, KATHRYN M MD Jan 18, 2023 16:54 CHERI NUNO MD Jan 18, 2023 19:02
[2023-01-18 17:00] LABS: BASOPHILS % (AUTO) 0 % (0-10); EOSINOPHILS # (AUTO) 0.2 10^3/uL (0.0-0.3); EOSINOPHILS % (AUTO) 2 % (0-10); HEMATOCRIT 50 % (40-54); HEMOGLOBIN 16.4 g/dL (13.3-17.7); LYMPHOCYTES # (AUTO) 1.5 10^3/uL (1.0-4.0); LYMPHOCYTES % (AUTO) 16 % (12-44); MEAN CORPUSCULAR HEMOGLOBIN 30 pg (25-34); MEAN CORPUSCULAR HGB CONC 33 g/dL (32-36); MEAN CORPUSCULAR VOLUME 92 fL (80-99); MEAN PLATELET VOLUME 9.6 fL (9.0-12.2); MONOCYTES # (AUTO) 1.1 10^3/uL (0.0-1.0); MONOCYTES % (AUTO) 11 % (0-12); NEUTROPHILS # (AUTO) 6.6 10^3/uL (1.8-7.8); NEUTROPHILS % (AUTO) 70 % (42-75); PLATELET COUNT 300 10^3/uL (130-400); WHITE BLOOD COUNT 9.5 10^3/uL (4.3-11.0)
[2023-01-18 17:02] LABS: ALBUMIN 4.2 GM/DL (3.2-4.5); POTASSIUM 4.4 MMOL/L (3.6-5.0); PROTHROMBIN TIME PATIENT 13.4 SEC (12.2-14.7)
[2023-01-18 17:04] LABS: CALCIUM 9.6 MG/DL (8.5-10.1)
[2023-01-18 17:05] LABS: TOTAL PROTEIN 7.4 GM/DL (6.4-8.2)
[2023-01-18 17:07] LABS: BILIRUBIN,TOTAL 0.5 MG/DL (0.1-1.0)
--- NOTE | 2023-01-18 17:07 | Diagnostic Imaging Report ---
EXAMINATION: Chest 1 view HISTORY: Chest pain COMPARISON: None available. FINDINGS: Heart size and pulmonary vasculature are normal. There are mild opacities within the left lung base. There may be small left pleural effusion. No pneumothorax. The osseous structures are intact. IMPRESSION: 1. Small left pleural effusion with adjacent atelectasis or consolidation. Dictated by: Dictated on workstation # [id number]
[2023-01-18 17:08] LABS: CREATININE SERUM 0.92 MG/DL (0.60-1.30)
[2023-01-18 17:11] LABS: MAGNESIUM 2.1 MG/DL (1.6-2.4)
[2023-01-18] MEDS ORDERED: NS IV 1000 ML 1,000 ML IV STA (17:25)
[2023-01-18] MEDS ORDERED: IOHEXOL 300 MG/ML 100 ML (OMNIPAQUE 300) VIAL IV ONE (17:30)
[2023-01-18] MEDS ORDERED: HOLD METFORMIN - RECEIVED CONTRAST 20 ML VIAL IV SCH ×2 (17:30→17:45)
[2023-01-18] MEDS ORDERED: NS 100 ML (IVPB) BAG IV ONE ×2 (17:30→17:45)
[2023-01-18] MEDS ORDERED: IOHEXOL 350 MG/ML 100 ML (OMNIPAQUE 350) VIAL IV ONE (17:45)
--- NOTE | 2023-01-18 18:13 | Diagnostic Imaging Report ---
EXAMINATION: CT chest with intravenous contrast. TECHNIQUE: Multiple contiguous axial images were obtained through the chest after the uneventful administration of intravenous contrast. All CT scans use one or more of the following dose optimizing techniques: automated exposure control, MA and/or KvP adjustment based on patient size and exam type or iterative reconstruction. HISTORY: SOB; left sided chest pain; effusion COMPARISON: 07/27/2022 FINDINGS: Thyroid: The thyroid is normal. Mediastinum: Heart size is normal without significant pericardial effusion. Calcifications of the aorta and coronary vessels. Thoracic aorta is normal in caliber. No suspicious lymphadenopathy. Lungs and airways: There is a small left pleural effusion with left basilar atelectasis. No focal consolidation or pneumothorax. The airways are normal. Upper abdomen: The subphrenic structures are normal. Musculoskeletal: No suspicious osseous lesion or compression fracture. IMPRESSION: 1. Small left pleural effusion with left basilar atelectasis. 2. No other acute abnormality in the chest. Dictated by: Dictated on workstation # [id number]
[2023-01-18] MEDS ORDERED: cefTRIAXone 1 GM PRE-MIX 50 ML IV STA (18:50)
[2023-01-18] MEDS ORDERED: RT-ALBUTEROL/IPRATROPIUM 3 ML (DUONEB) VIAL INH ONE (19:00)
[2023-01-18] MEDS ORDERED: KETOROLAC 30 MG/ML VIAL IVP ONE (19:00)
[2023-01-18] MEDS ORDERED: CEFD300C3 PO (19:07)
[2023-01-18] MEDS ORDERED: AZIT250T12 PO (19:07)
[2023-01-18] MEDS ORDERED: RT-ALBUTEROL HFA 8.5 GM INHALER IH STA (20:09)
[2023-01-18] MEDS ORDERED: PRD20T PO (20:14)
[2023-01-18 20:24] VITALS: BP 152/90
== END 2023-01-18 20:24 | disposition home or self-care (01) ==
LOC: EDUNIT# 16:22 → ER 16:26
DX: J90 Pleural effusion, not elsewhere classified (principal); J98.01 Acute bronchospasm; I10 Essential (primary) hypertension; J98.11 Atelectasis; Z86.79 Personal history of other diseases of the circulatory system; Z79.899 Other long term (current) drug therapy; Z95.5 Presence of coronary angioplasty implant and graft; Z28.310 Unvaccinated for COVID-19; Z20.822 Contact with and (suspected) exposure to COVID-19
CPT/HCPCS: 36415; 71045; 71260; 80053; 83735; 83880; 84484; 85025; 85379; 85610; 85652; 85730; 86141; 87636; 93005; 93041; 94640

== ENCOUNTER → 2023-03-26 | Outpatient (CLI) | payer MEDICARE, OTHER ==
[~2023-03-26] MED LIST changes: +AZIT250T12 PO; +CEFD300C3 PO; +PRD20T PO
== END ==
LOC: CARD 07:53
PROVIDERS: ATTEND Internal Medicine Cardiovascular Disease
DX: I10 Essential (primary) hypertension (principal); I25.10 Atherosclerotic heart disease of native coronary artery without angina pectoris
CPT/HCPCS: 93306